=== PATIENT | female | born 1960 | race Caucasian/White ===

== ENCOUNTER 2021-04-13 16:26 | Inpatient (IN) | payer OTHER ==
[2021-04-13 19:01] LABS: EPI CELLS 2 /uL (0-25.1); HYALINE CASTS 0 /uL (0-3.1); URINE APPEARANCE TURBID; URINE BACTERIA 7023 /uL (0-1359); URINE BILIRUBIN NEGATIVE (NEGATIVE); URINE COLOR YELLOW; URINE GLUCOSE (UA) 2+ (NEGATIVE); URINE KETONE NEGATIVE (NEGATIVE); URINE LEUK ESTERASE 3+ (NEGATIVE); URINE NITRITE NEGATIVE (NEGATIVE); URINE PROTEIN 2+ (NEGATIVE); URINE RBC 129 /uL (0-23.9); URINE UROBILINOGEN 0.2 mg/dL (0.2-1.0); URINE WBC 2592 /uL (0-25.8)
[2021-04-13 19:09] LABS: HEMATOCRIT 31.8 % (32.4-45.2); HEMOGLOBIN 10.6 GM/dL (10.7-15.3); MCH 29.6 pg (25.7-33.7); MCHC 33.5 g/dl (32.0-36.0); MEAN CELL VOLUME 88.4 fl (80-96); MEAN PLT VOLUME 9.9 fl (7.5-11.1); PLATELET COUNT 265 10^3/uL (134-434); RBC 3.59 M/mm3 (3.60-5.2); RDW 15.2 % (11.6-15.6); WHITE BLOOD COUNT 7.2 K/mm3 (4.0-10.0)
[2021-04-13] MEDS ORDERED: CEFTRIAXONE 1,000 MG in DEXTROSE 5%-WATER - 50 ML IVPB ONE (19:15)
[2021-04-13] MEDS ORDERED: SODIUM CHLORIDE 0.9% 500 ML INFUS.BAG IV ONE (19:21)
[2021-04-13 19:35] LABS: CHLORIDE 105 mmol/L (98-107); SODIUM 137 mmol/L (136-145)
[2021-04-13 19:36] LABS: CALCIUM 9.1 mg/dL (8.5-10.1)
[2021-04-13] MEDS ORDERED: CEFTRIAXONE 1 GM/50 ML BAG ONE (19:36)
[2021-04-13 19:37] LABS: ALBUMIN 3.6 g/dl (3.4-5.0); ANION GAP 11 MMOL/L (8-16); BLOOD UREA NITROGEN 82.4 mg/dL (7-18); CO2 21 mmol/L (21-32); GLUCOSE,RANDOM 144 mg/dL (74-106)
[2021-04-13 19:40] LABS: CREATININE 1.8 mg/dL (0.55-1.3); SGOT/AST 21 U/L (15-37); SGPT/ALT 6 U/L (13-61)
[2021-04-13 19:42] LABS: BILIRUBIN,TOTAL 0.4 mg/dL (0.2-1); TOT PROT 8.1 g/dl (6.4-8.2)
[2021-04-13 19:43] LABS: ALK PHOS 91 U/L (45-117)
[2021-04-13 19:50] LABS: ANISOCYTOSIS 0; MACROCYTOSIS 0; PLATELET ESTIMATE NORMAL
[2021-04-14] MEDS ORDERED: ALBUTEROL SO4 2.5/IPRATROPIUM 0.5 INH SOL 3 ML VIAL.NEB. NEB PRN (02:31)
[2021-04-14] MEDS: ACETAMINOPHEN 325 MG TABLET (FP) PO PRN ×3 (05:33→17:48)
[2021-04-14] MEDS: INSULIN SLIDING SCALE (NOVOLOG) 1 VIAL SQ SCH ×3 (07:00→17:21)
[2021-04-14] MEDS ORDERED: LEVOTHYROXINE NA 25 MCG TABLET (FP) ONE (07:02)
[2021-04-14] MEDS: LEVOTHYROXINE NA 125 MCG TABLET (FP) PO SCH (07:11)
[2021-04-14 08:34] LABS: HEMATOCRIT 29.6 % (32.4-45.2); HEMOGLOBIN 9.6 GM/dL (10.7-15.3); MCHC 32.5 g/dl (32.0-36.0); MEAN CELL VOLUME 89.2 fl (80-96); MEAN PLT VOLUME 10.7 fl (7.5-11.1); PLATELET COUNT 281 10^3/uL (134-434); RBC 3.32 M/mm3 (3.60-5.2); RDW 15.1 % (11.6-15.6); WHITE BLOOD COUNT 6.3 K/mm3 (4.0-10.0)
[2021-04-14 08:53] LABS: BLOOD UREA NITROGEN 76.8 mg/dL (7-18)
[2021-04-14 08:55] LABS: ALBUMIN 3.3 g/dl (3.4-5.0); MAGNESIUM 2.7 mg/dL (1.8-2.4); PHOSPHOROUS 4.5 mg/dL (2.5-4.9)
[2021-04-14 08:56] LABS: BILIRUBIN,TOTAL 0.3 mg/dL (0.2-1); CREATININE 1.6 mg/dL (0.55-1.3); TOT PROT 7.5 g/dl (6.4-8.2)
[2021-04-14] MEDS ORDERED: APIXABAN 2.5 MG TABLET ONE (09:42)
[2021-04-14] MEDS ORDERED: CEFTRIAXONE 1 GM/50 ML BAG ONE (09:42)
[2021-04-14] MEDS: APIXABAN 2.5 MG TABLET PO SCH ×2 (09:54→23:46)
[2021-04-14] MEDS ORDERED: CEFTRIAXONE 1 GM in DEXTROSE 5%-WATER - 50 ML IVPB ONE (10:00)
[2021-04-14] MEDS ORDERED: PT OWN MED DRAWER 7, Y5N ONE (10:05)
[2021-04-14] MEDS: RANOLAZINE E.R. 500 MG TABLET (FP) PO SCH (10:10)
[2021-04-14] MEDS ORDERED: ACETAMINOPHEN 325 MG TABLET (FP) ONE ×2 (11:35→16:57)
[2021-04-14] MEDS ORDERED: NITROGLYCERIN SUBLINGUAL 1/150 0.4 MG TAB SL PRN (23:09)
[2021-04-14] MEDS ORDERED: NITROGLYCERIN SUBLINGUAL 1/150 0.4 MG TAB ONE (23:10)
[2021-04-14] MEDS ORDERED: traMADol HCL 50 MG TABLET PO ONE (23:29)
[2021-04-14] MEDS ORDERED: RANOLAZINE E.R. 500 MG TABLET (FP) PO ONE (23:30)
[2021-04-15 00:02] VITALS: BMI 21.6
[2021-04-15] MEDS: RANOLAZINE E.R. 500 MG TABLET (FP) PO SCH ×3 (00:02→21:42)
[2021-04-15] MEDS: INSULIN SLIDING SCALE (NOVOLOG) 1 VIAL SQ SCH ×4 (00:02→21:42)
[2021-04-15] MEDS: LEVOTHYROXINE NA 125 MCG TABLET (FP) PO SCH (06:32)
[2021-04-15] MEDS: ACETAMINOPHEN 325 MG TABLET (FP) PO PRN ×2 (06:32→18:16)
[2021-04-15] MEDS: APIXABAN 2.5 MG TABLET PO SCH ×2 (10:27→21:42)
[2021-04-15] MEDS ORDERED: MEROPENEM 1 GM VIAL (RESTRICTED TO ID) IVPB ONE ×2 (10:44→17:57)
[2021-04-15] MEDS ORDERED: DEXTROSE 5%-WATER 100 ML IVPB ONE ×2 (10:44→17:56)
[2021-04-15] MEDS ORDERED: CEFTRIAXONE 1 GM in DEXTROSE 5%-WATER - 50 ML IVPB SCH (10:45)
[2021-04-15] MEDS: LOSARTAN POTASSIUM 50 MG TABLET PO SCH (10:47)
[2021-04-15] MEDS: CARBIDOPA/LEVODOPA 25/100 TABLET (FP) PO SCH (10:47)
[2021-04-15] MEDS: FUROSEMIDE 40 MG TABLET (FP) PO SCH (10:47)
[2021-04-15] MEDS: MEROPENEM 1 GM in DEXTROSE 5%-WATER 100 ML IVPB SCH ×2 (10:48→18:13)
[2021-04-15 12:07] LABS: ALBUMIN 3.2 g/dl (3.4-5.0); BILIRUBIN,TOTAL 0.7 mg/dl (0.2-1); CALCIUM 8.9 mg/dl (8.5-10); CREATININE 1.2 mg/dl (0.55-1.3); MAGNESIUM 2.4 mg/dL (1.8-2.4); TOT PROT 7.1 g/dl (6.4-8.2)
[2021-04-15 12:50] LABS: HEMATOCRIT 28.6 % (32.4-45.2); HEMOGLOBIN 9.6 GM/dL (10.7-15.3); MCH 29.8 pg (25.7-33.7); MCHC 33.7 g/dl (32.0-36.0); MEAN CELL VOLUME 88.5 fl (80-96); MEAN PLT VOLUME 9.5 fl (7.5-11.1); PLATELET COUNT 285 10^3/uL (134-434); RBC 3.23 M/mm3 (3.60-5.2); RDW 15.6 % (11.6-15.6); WHITE BLOOD COUNT 5.9 K/mm3 (4.0-10.0)
[2021-04-15 14:18] LABS: ANISOCYTOSIS 2+; MACROCYTOSIS 0; OVALOCYTE 2+; PLATELET ESTIMATE NORMAL
[2021-04-15] MEDS ORDERED: MEROPENEM 1 GM in DEXTROSE 5%-WATER 100 ML IVPB SCH (18:00)
[2021-04-15] MEDS ORDERED: traMADol HCL 50 MG TABLET PO ONE (23:35)
[2021-04-16] MEDS ORDERED: DEXTROSE 5%-WATER 100 ML IVPB ONE ×4 (00:57→23:58)
[2021-04-16] MEDS ORDERED: MEROPENEM 1 GM VIAL (RESTRICTED TO ID) IVPB ONE ×4 (00:58→23:58)
[2021-04-16] MEDS: MEROPENEM 1 GM in DEXTROSE 5%-WATER 100 ML IVPB SCH ×3 (01:08→18:56)
[2021-04-16] MEDS: ACETAMINOPHEN 325 MG TABLET (FP) PO PRN ×2 (06:34→20:11)
[2021-04-16] MEDS: INSULIN SLIDING SCALE (NOVOLOG) 1 VIAL SQ SCH ×3 (06:41→17:32)
[2021-04-16] MEDS: LEVOTHYROXINE NA 112 MCG TABLET (FP) PO SCH (06:46)
[2021-04-16 08:53] LABS: ALBUMIN 3.3 g/dl (3.4-5.0); BILIRUBIN,TOTAL 0.7 mg/dl (0.2-1); CALCIUM 9.2 mg/dl (8.5-10); CREATININE 1.3 mg/dl (0.55-1.3); TOT PROT 7.2 g/dl (6.4-8.2)
[2021-04-16 10:50] LABS: HEMATOCRIT 31.9 % (32.4-45.2); HEMOGLOBIN 10.3 GM/dL (10.7-15.3); MCH 28.6 pg (25.7-33.7); MCHC 32.1 g/dl (32.0-36.0); MEAN CELL VOLUME 88.9 fl (80-96); MEAN PLT VOLUME 9.8 fl (7.5-11.1); PLATELET COUNT 330 10^3/uL (134-434); RBC 3.59 M/mm3 (3.60-5.2); RDW 15.5 % (11.6-15.6); WHITE BLOOD COUNT 6.8 K/mm3 (4.0-10.0)
[2021-04-16] MEDS: FUROSEMIDE 40 MG TABLET (FP) PO SCH (11:24)
[2021-04-16] MEDS: CARBIDOPA/LEVODOPA 25/100 TABLET (FP) PO SCH (11:24)
[2021-04-16] MEDS: LOSARTAN POTASSIUM 50 MG TABLET PO SCH (11:24)
[2021-04-16] MEDS: RANOLAZINE E.R. 500 MG TABLET (FP) PO SCH ×2 (11:25→21:11)
[2021-04-16] MEDS: APIXABAN 2.5 MG TABLET PO SCH ×2 (11:25→21:11)
[2021-04-16 11:28] LABS: N-TERMINAL BNP 18255.2 pg/ml (5-125)
[2021-04-16 11:32] LABS: ANISOCYTOSIS 0; HELMET CELLS 0; HOWELL-JOLLY BODIES 0; MACROCYTOSIS 0; OVALOCYTE 0; PLATELET ESTIMATE NORMAL; ROULEAU 0; SICKELED CELLS 0; TARGET CELLS 0; TEAR DROP CELLS 0; TOXIC GRANULATION 0
[2021-04-17] MEDS: INSULIN SLIDING SCALE (NOVOLOG) 1 VIAL SQ SCH ×4 (00:23→16:54)
[2021-04-17] MEDS: ACETAMINOPHEN 325 MG TABLET (FP) PO PRN (01:23)
[2021-04-17] MEDS: MEROPENEM 1 GM in DEXTROSE 5%-WATER 100 ML IVPB SCH ×2 (01:24→12:58)
[2021-04-17] MEDS ORDERED: traMADol HCL 50 MG TABLET PO ONE (02:04)
[2021-04-17] MEDS: LEVOTHYROXINE NA 112 MCG TABLET (FP) PO SCH (06:29)
[2021-04-17] MEDS ORDERED: APIXABAN 2.5 MG TABLET PO SCH (10:00)
[2021-04-17] MEDS ORDERED: DEXTROSE 5%-WATER 100 ML IVPB ONE (12:40)
[2021-04-17] MEDS ORDERED: MEROPENEM 1 GM VIAL (RESTRICTED TO ID) IVPB ONE (12:41)
[2021-04-17] MEDS: RANOLAZINE E.R. 500 MG TABLET (FP) PO SCH (12:43)
[2021-04-17] MEDS: FUROSEMIDE 40 MG TABLET (FP) PO SCH (12:44)
[2021-04-17] MEDS: LOSARTAN POTASSIUM 50 MG TABLET PO SCH (12:44)
[2021-04-17] MEDS: CARBIDOPA/LEVODOPA 25/100 TABLET (FP) PO SCH (12:44)
[2021-04-17 14:06] VITALS: BP 150/80; PULSE 81; TEMP 98.6
== END 2021-04-17 17:40 | disposition home health service (06) | DRG 463 ==
LOC: JER 16:26 → UNDOADMOB 19:37 → JERBED 19:37 → FM/S 04-15 00:39 → OBSVTOIN 04-16 13:34
PROVIDERS: ADMIT Hospitalist; ATTEND Nurse Practitioner Acute Care
PROC: 05HB33Z Insertion of Infusion Device into Right Basilic Vein, Percutaneous Approach (ICD-10-PCS; principal; 2021-04-17)
PROC: B51MZZA Fluoroscopy of Right Upper Extremity Veins, Guidance (ICD-10-PCS; 2021-04-17)
PROC: 05HC33Z Insertion of Infusion Device into Left Basilic Vein, Percutaneous Approach (ICD-10-PCS; 2021-04-17)
PROC: B51NZZZ Fluoroscopy of Left Upper Extremity Veins (ICD-10-PCS; 2021-04-17)
DX: N39.0 Urinary tract infection, site not specified (principal); J96.11 Chronic respiratory failure with hypoxia; N17.9 Acute kidney failure, unspecified; B96.1 Klebsiella pneumoniae [K. pneumoniae] as the cause of diseases classified elsewhere; G82.20 Paraplegia, unspecified; I13.0 Hypertensive heart and chronic kidney disease with heart failure and stage 1 through stage 4 chronic kidney disease, or unspecified chronic kidney disease; I50.42 Chronic combined systolic (congestive) and diastolic (congestive) heart failure; G20 Parkinson's disease; I48.0 Paroxysmal atrial fibrillation; R31.9 Hematuria, unspecified; R33.9 Retention of urine, unspecified; Z16.12 Extended spectrum beta lactamase (ESBL) resistance; E78.5 Hyperlipidemia, unspecified; I25.10 Atherosclerotic heart disease of native coronary artery without angina pectoris; Z95.1 Presence of aortocoronary bypass graft; Z98.61 Coronary angioplasty status; E11.9 Type 2 diabetes mellitus without complications; E03.9 Hypothyroidism, unspecified; N18.2 Chronic kidney disease, stage 2 (mild); R07.89 Other chest pain; I69.354 Hemiplegia and hemiparesis following cerebral infarction affecting left non-dominant side; I69.351 Hemiplegia and hemiparesis following cerebral infarction affecting right dominant side
CPT/HCPCS: 36415; 36569; 71045-TC-FY; 75820-TC-FY; 76775-TC; 80053; 80061; 81003; 82550; 82962; 83036; 83735; 83880; 84100; 84443; 84484; 85025; 85027; 87086; 87186; 87804; 93005; 93010; 97162-GP; 99285-25; C9803; G0378; U0003; U0005

== ENCOUNTER 2021-04-20 22:47 | Inpatient (IN) | payer OTHER ==
[2021-04-21] MEDS ORDERED: CLINDAMYCIN 600MG PREMIX IVPB 600 MG/50 ML BAG IVPB ONE ×2 (00:23→00:57)
[2021-04-21] MEDS ORDERED: VANCOMYCIN 1 GM in D5W (PRE-DOCKED) 1,000 MG/250 ML IVPB ONE (00:24)
[2021-04-21] MEDS ORDERED: PIPERACILLIN/TAZOB 4.5 GM 4.5 GM in DEXTROSE 5%-WATER 100 ML IVPB ONE (00:24)
[2021-04-21] MEDS ORDERED: VANCOMYCIN 1 GRAM (PRE-DOCKED) 1,000 MG/250 ML BAG IVPB ONE (00:56)
[2021-04-21] MEDS ORDERED: PIPERACILLIN/TAZOB 4.5 GM 4.5 GM/100 ML BAG IVPB ONE (00:56)
[2021-04-21 01:40] LABS: BASO % 0.5 % (0-2.0); EOS % 1.7 % (0-4.5); HEMATOCRIT 27.7 % (32.4-45.2); HEMOGLOBIN 9.2 GM/dL (10.7-15.3); LYMPH % 23.2 % (8-40); MCH 29.6 pg (25.7-33.7); MCHC 33.2 g/dl (32.0-36.0); MEAN CELL VOLUME 89.2 fl (80-96); MEAN PLT VOLUME 9.3 fl (7.5-11.1); MONO % 8.4 % (3.8-10.2); NEUT % 66.2 % (42.8-82.8); PLATELET COUNT 337 10^3/uL (134-434); RDW 15.5 % (11.6-15.6); WHITE BLOOD COUNT 9.4 K/mm3 (4.0-10.0)
[2021-04-21 01:56] LABS: INR 1.64 (0.83-1.09); PROTHROMBIN TIME (PATIENT) 18.9 SEC (9.7-13.0)
[2021-04-21 01:58] LABS: CHLORIDE 110 mmol/L (98-107); SODIUM 141 mmol/L (136-145)
[2021-04-21 01:59] LABS: ACTIVATED PTT 34.4 SECONDS (25.2-36.5)
[2021-04-21 02:02] LABS: ANION GAP 9 MMOL/L (8-16); BLOOD UREA NITROGEN 57.8 mg/dL (7-18); CALCIUM 8.3 mg/dL (8.5-10.1); CO2 23 mmol/L (21-32); GLUCOSE,RANDOM 198 mg/dL (74-106)
[2021-04-21 02:05] LABS: CREATININE 1.6 mg/dL (0.55-1.3); SGOT/AST 10 U/L (15-37)
[2021-04-21 02:07] LABS: BILIRUBIN,TOTAL 0.4 mg/dL (0.2-1)
[2021-04-21 02:19] LABS: VENOUS BASE EXCESS -5.1 mmol/L (-2-2); VENOUS O2 SATURATION 75.5 % (70-80); VENOUS PCO2 49.7 mmHg (38-52); VENOUS PH 7.263 (7.310-7.410)
[2021-04-21 02:22] LABS: ALK PHOS 127 U/L (45-117); SGPT/ALT < 6 U/L (13-61)
[2021-04-21] MEDS ORDERED: ACETAMINOPHEN 325 MG TABLET (FP) PO ONE (03:09)
[2021-04-21] MEDS ORDERED: ACETAMINOPHEN 325 MG TABLET (FP) ONE (03:11)
[2021-04-21] MEDS ORDERED: LACTATED RINGERS SOLUTION 1000 ML INFUS.BAG IV ONE (03:27)
[2021-04-21] MEDS ORDERED: ASPIRIN 81 MG CHEWABLE TABLETS PO ONE (04:01)
[2021-04-21] MEDS ORDERED: HEPARIN INFUSION - 25,000 UNITS/500 ML INFUS.BAG IVPB ONE ×2 (04:37→05:49)
[2021-04-21] MEDS ORDERED: HEPARIN NA (PORCINE) 5,000 UNITS/ML 1ML VIAL ONE (04:37)
[2021-04-21] MEDS ORDERED: ASPIRIN 81 MG CHEWABLE TABLETS ONE (04:48)
[2021-04-21 04:55] LABS: EPI CELLS 13 /uL (0-25.1); HYALINE CASTS 2 /uL (0-3.1); URINE APPEARANCE CLEAR; URINE BACTERIA 0 /uL (0-1359); URINE BILIRUBIN NEGATIVE (NEGATIVE); URINE COLOR YELLOW; URINE GLUCOSE (UA) 3+ (NEGATIVE); URINE KETONE NEGATIVE (NEGATIVE); URINE LEUK ESTERASE NEGATIVE (NEGATIVE); URINE NITRITE NEGATIVE (NEGATIVE); URINE PROTEIN 2+ (NEGATIVE); URINE RBC 6 /uL (0-23.9); URINE UROBILINOGEN 0.2 mg/dL (0.2-1.0); URINE WBC 27 /uL (0-25.8)
[2021-04-21] MEDS: HEPARIN SOD,PORK IN 0.45% NACL 25,000 UNITS/500 ML INFUS.BAG IVPB SCH (06:03)
[2021-04-21] MEDS ORDERED: ERTAPENEM SODIUM 1 GM in SODIUM CHLORIDE 50 ML IVPB ONE (06:45)
[2021-04-21] MEDS ORDERED: ERTAPENEM SODIUM 1 GM VIAL ONE (07:35)
[2021-04-21] MEDS: LEVOTHYROXINE NA 112 MCG TABLET (FP) PO SCH (09:56)
[2021-04-21] MEDS: RANOLAZINE E.R. 500 MG TABLET (FP) PO SCH (09:57)
[2021-04-21] MEDS ORDERED: FUROSEMIDE 40 MG TABLET (FP) ONE (10:00)
[2021-04-21] MEDS ORDERED: CARBIDOPA/LEVODOPA 25/100 TABLET (FP) PO SCH (10:00)
[2021-04-21] MEDS ORDERED: LOSARTAN POTASSIUM 50 MG TABLET ONE (10:00)
[2021-04-21] MEDS: LOSARTAN POTASSIUM 50 MG TABLET PO SCH (10:02)
[2021-04-21] MEDS: FUROSEMIDE 40 MG TABLET (FP) PO SCH (10:02)
[2021-04-21] MEDS: INSULIN SLIDING SCALE (NOVOLOG) 1 VIAL SQ SCH ×2 (10:13→13:05)
[2021-04-21 11:43] LABS: HEMATOCRIT 29.3 % (32.4-45.2); HEMOGLOBIN 9.5 GM/dL (10.7-15.3); MCH 29.3 pg (25.7-33.7); MCHC 32.6 g/dl (32.0-36.0); MEAN PLT VOLUME 9.4 fl (7.5-11.1); PLATELET COUNT 328 10^3/uL (134-434); RBC 3.25 M/mm3 (3.60-5.2); WHITE BLOOD COUNT 10.8 K/mm3 (4.0-10.0)
[2021-04-21 12:50] LABS: ALBUMIN 3.2 g/dl (3.4-5.0); BILIRUBIN,TOTAL 0.3 mg/dL (0.2-1); BLOOD UREA NITROGEN 52.2 mg/dL (7-18); CREATININE 1.4 mg/dL (0.55-1.3); MAGNESIUM 2.5 mg/dL (1.8-2.4); PHOSPHOROUS 4.6 mg/dL (2.5-4.9); TOT PROT 7.7 g/dl (6.4-8.2)
[2021-04-21] MEDS ORDERED: traZODone HCL 50 MG TABLET (FP) PO SCH (22:00)
[2021-04-22] MEDS ORDERED: ACETAMINOPHEN 1000 MG/100 ML BAG IVPB ONE (03:16)
[2021-04-22] MEDS: INSULIN SLIDING SCALE (NOVOLOG) 1 VIAL SQ SCH ×7 (03:20→23:12)
[2021-04-22] MEDS: HEPARIN NA (PORCINE) 5,000 UNITS/ML 1ML VIAL IVPUSH PRN (04:15)
[2021-04-22] MEDS ORDERED: HEPARIN NA (PORCINE) 5,000 UNITS/ML 1ML VIAL ONE (04:22)
[2021-04-22 08:30] LABS: HEMOGLOBIN 9.3 GM/dL (10.7-15.3); MCHC 31.9 g/dl (32.0-36.0); MEAN CELL VOLUME 90.7 fl (80-96); MEAN PLT VOLUME 9.7 fl (7.5-11.1); PLATELET COUNT 293 10^3/uL (134-434); RDW 15.8 % (11.6-15.6); WHITE BLOOD COUNT 9.3 K/mm3 (4.0-10.0)
[2021-04-22] MEDS: LEVOTHYROXINE NA 112 MCG TABLET (FP) PO SCH (09:04)
[2021-04-22] MEDS ORDERED: LOSARTAN POTASSIUM 50 MG TABLET ONE (09:16)
[2021-04-22] MEDS ORDERED: FUROSEMIDE 40 MG TABLET (FP) ONE (09:16)
[2021-04-22] MEDS ORDERED: CARBIDOPA/LEVODOPA 25/100 TABLET (FP) ONE (09:16)
[2021-04-22 09:20] LABS: ALBUMIN 2.8 g/dl (3.4-5.0); BILIRUBIN,TOTAL 0.4 mg/dL (0.2-1); BLOOD UREA NITROGEN 42.3 mg/dL (7-18); CALCIUM 9.2 mg/dL (8.5-10.1); CREATININE 1.3 mg/dL (0.55-1.3); TOT PROT 7.3 g/dl (6.4-8.2)
[2021-04-22] MEDS: RANOLAZINE E.R. 500 MG TABLET (FP) PO SCH ×3 (09:21→21:08)
[2021-04-22] MEDS: CARBIDOPA/LEVODOPA 25/100 TABLET (FP) PO SCH (09:21)
[2021-04-22] MEDS: LOSARTAN POTASSIUM 50 MG TABLET PO SCH (09:21)
[2021-04-22] MEDS: FUROSEMIDE 40 MG TABLET (FP) PO SCH (09:21)
[2021-04-22] MEDS ORDERED: HEPARIN INFUSION - 25,000 UNITS/500 ML INFUS.BAG IVPB ONE (18:32)
[2021-04-22] MEDS: HEPARIN SOD,PORK IN 0.45% NACL 25,000 UNITS/500 ML INFUS.BAG IVPB SCH (18:34)
[2021-04-22] MEDS ORDERED: ERTAPENEM SODIUM 1 GM in SODIUM CHLORIDE 50 ML IVPB ONE (19:00)
[2021-04-22] MEDS ORDERED: ERTAPENEM SODIUM 1 GM VIAL ONE (21:03)
[2021-04-22] MEDS: oxyCODONE HCL 5 MG TABLET PO PRN (21:17)
[2021-04-22] MEDS ORDERED: oxyCODONE HCL 5 MG TABLET ONE (21:21)
[2021-04-22] MEDS: traZODone HCL 100 MG TABLET (FP) PO SCH (21:22)
[2021-04-23] MEDS ORDERED: MELATONIN 5 MG TABLETS PO ONE (01:18)
[2021-04-23] MEDS: oxyCODONE HCL 5 MG TABLET PO PRN ×3 (03:05→22:02)
[2021-04-23 04:23] VITALS: BMI 22.4
[2021-04-23] MEDS ORDERED: ACETAMINOPHEN 1000 MG/100 ML BAG IVPB ONE (04:44)
[2021-04-23] MEDS: INSULIN SLIDING SCALE (NOVOLOG) 1 VIAL SQ SCH ×4 (06:04→21:01)
[2021-04-23] MEDS: LEVOTHYROXINE NA 112 MCG TABLET (FP) PO SCH (06:04)
[2021-04-23] MEDS: HEPARIN SOD,PORK IN 0.45% NACL 25,000 UNITS/500 ML INFUS.BAG IVPB SCH (07:12)
[2021-04-23] MEDS: RANOLAZINE E.R. 500 MG TABLET (FP) PO SCH ×2 (09:00→21:00)
[2021-04-23] MEDS: LOSARTAN POTASSIUM 50 MG TABLET PO SCH (09:00)
[2021-04-23] MEDS: FUROSEMIDE 40 MG TABLET (FP) PO SCH (09:00)
[2021-04-23] MEDS: CARBIDOPA/LEVODOPA 25/100 TABLET (FP) PO SCH (09:00)
[2021-04-23 09:07] LABS: HEMATOCRIT 25.8 % (32.4-45.2); HEMOGLOBIN 8.1 GM/dL (10.7-15.3); MCH 28.6 pg (25.7-33.7); MCHC 31.3 g/dl (32.0-36.0); MEAN CELL VOLUME 91.5 fl (80-96); MEAN PLT VOLUME 9.7 fl (7.5-11.1); PLATELET COUNT 289 10^3/uL (134-434); RBC 2.82 M/mm3 (3.60-5.2); RDW 15.6 % (11.6-15.6); WHITE BLOOD COUNT 7.4 K/mm3 (4.0-10.0)
[2021-04-23] MEDS ORDERED: MEROPENEM 1 GM VIAL (RESTRICTED TO ID) IVPB ONE (14:23)
[2021-04-23] MEDS ORDERED: DEXTROSE 5%-WATER 100 ML IVPB ONE (14:24)
[2021-04-23] MEDS: MEROPENEM 1 GM in DEXTROSE 5%-WATER 100 ML IVPB SCH ×2 (14:33→17:44)
[2021-04-23] MEDS: traZODone HCL 100 MG TABLET (FP) PO SCH (21:01)
[2021-04-24] MEDS ORDERED: MEROPENEM 1 GM VIAL (RESTRICTED TO ID) IVPB ONE ×3 (02:45→17:14)
[2021-04-24] MEDS ORDERED: DEXTROSE 5%-WATER 100 ML IVPB ONE ×3 (02:45→17:14)
[2021-04-24] MEDS: MEROPENEM 1 GM in DEXTROSE 5%-WATER 100 ML IVPB SCH ×3 (02:53→17:29)
[2021-04-24] MEDS ORDERED: ACETAMINOPHEN 1000 MG/100 ML BAG IVPB ONE (02:57)
[2021-04-24] MEDS ORDERED: NITROGLYCERIN SUBLINGUAL 1/200 0.3 MG BTL SL PRN (02:59)
[2021-04-24] MEDS: NITROGLYCERIN SUBLINGUAL 1/150 0.4 MG TAB SL PRN ×2 (03:43→13:14)
[2021-04-24] MEDS: HEPARIN SOD,PORK IN 0.45% NACL 25,000 UNITS/500 ML INFUS.BAG IVPB SCH (05:56)
[2021-04-24] MEDS: LEVOTHYROXINE NA 112 MCG TABLET (FP) PO SCH (06:01)
[2021-04-24] MEDS: INSULIN SLIDING SCALE (NOVOLOG) 1 VIAL SQ SCH ×5 (06:01→21:00)
[2021-04-24] MEDS: RANOLAZINE E.R. 500 MG TABLET (FP) PO SCH ×2 (10:22→21:05)
[2021-04-24] MEDS: ZINC SULFATE 220 MG CAPSULE (FP) PO SCH (10:22)
[2021-04-24] MEDS: CARBIDOPA/LEVODOPA 25/100 TABLET (FP) PO SCH (10:22)
[2021-04-24] MEDS: MULTIVITAMINS (DAILY MVI) TABLET (FP) PO SCH (10:23)
[2021-04-24] MEDS: LOSARTAN POTASSIUM 50 MG TABLET PO SCH (10:23)
[2021-04-24] MEDS: FUROSEMIDE 40 MG TABLET (FP) PO SCH (10:23)
[2021-04-24 11:23] LABS: HEMATOCRIT 28.4 % (32.4-45.2); HEMOGLOBIN 9.1 GM/dL (10.7-15.3); MCHC 32.2 g/dl (32.0-36.0); MEAN CELL VOLUME 90.3 fl (80-96); MEAN PLT VOLUME 9.9 fl (7.5-11.1); PLATELET COUNT 312 10^3/uL (134-434); RBC 3.14 M/mm3 (3.60-5.2); RDW 15.5 % (11.6-15.6); WHITE BLOOD COUNT 7.3 K/mm3 (4.0-10.0)
[2021-04-24 11:43] LABS: CHLORIDE 108 mmol/L (98-107); SODIUM 140 mmol/L (136-145)
[2021-04-24 11:45] LABS: CALCIUM 9.4 mg/dL (8.5-10.1)
[2021-04-24 11:47] LABS: ANION GAP 6 MMOL/L (8-16); BLOOD UREA NITROGEN 36.7 mg/dL (7-18); CO2 27 mmol/L (21-32); GLUCOSE,RANDOM 131 mg/dL (74-106)
[2021-04-24 11:49] LABS: CREATININE 1.2 mg/dL (0.55-1.3); SGOT/AST 35 U/L (15-37); SGPT/ALT 8 U/L (13-61)
[2021-04-24 11:51] LABS: BILIRUBIN,TOTAL 0.4 mg/dL (0.2-1); TOT PROT 7.1 g/dl (6.4-8.2)
[2021-04-24 11:53] LABS: ALK PHOS 97 U/L (45-117)
[2021-04-24] MEDS: ASCORBIC ACID 250 MG TABLET (FP) PO SCH (12:04)
[2021-04-24] MEDS: HEPARIN NA (PORCINE) 5,000 UNITS/ML 1ML VIAL IVPUSH PRN (12:30)
[2021-04-24] MEDS: LIDOCAINE 5% TOPICAL PATCH TP SCH (14:35)
[2021-04-24] MEDS ORDERED: ACETAMINOPHEN 325 MG TABLET (FP) PO PRN (17:58)
[2021-04-24] MEDS: traZODone HCL 100 MG TABLET (FP) PO SCH (21:05)
[2021-04-24] MEDS ORDERED: LIDOCAINE PATCH REMOVAL MC SCH (22:00)
[2021-04-25] MEDS ORDERED: MEROPENEM 1 GM VIAL (RESTRICTED TO ID) IVPB ONE ×3 (01:39→17:06)
[2021-04-25] MEDS ORDERED: DEXTROSE 5%-WATER 100 ML IVPB ONE ×3 (01:39→17:06)
[2021-04-25] MEDS: MEROPENEM 1 GM in DEXTROSE 5%-WATER 100 ML IVPB SCH ×3 (01:42→17:31)
[2021-04-25] MEDS: oxyCODONE HCL 5 MG TABLET PO PRN ×2 (04:07→21:04)
[2021-04-25] MEDS: HEPARIN SOD,PORK IN 0.45% NACL 25,000 UNITS/500 ML INFUS.BAG IVPB SCH ×2 (05:02→17:22)
[2021-04-25] MEDS: INSULIN SLIDING SCALE (NOVOLOG) 1 VIAL SQ SCH ×4 (06:00→21:04)
[2021-04-25] MEDS: LEVOTHYROXINE NA 112 MCG TABLET (FP) PO SCH (06:00)
[2021-04-25 06:45] LABS: HEMATOCRIT 25.8 % (32.4-45.2); HEMOGLOBIN 8.2 GM/dL (10.7-15.3); MCHC 31.7 g/dl (32.0-36.0); MEAN CELL VOLUME 91.6 fl (80-96); MEAN PLT VOLUME 9.2 fl (7.5-11.1); PLATELET COUNT 290 10^3/uL (134-434); RBC 2.82 M/mm3 (3.60-5.2); RDW 15.4 % (11.6-15.6); WHITE BLOOD COUNT 6.1 K/mm3 (4.0-10.0)
[2021-04-25 09:21] LABS: ALBUMIN 2.7 g/dl (3.4-5.0); ALK PHOS 84 U/L (45-117); ANION GAP 8 MMOL/L (8-16); BILIRUBIN,TOTAL 0.3 mg/dL (0.2-1); BLOOD UREA NITROGEN 30.5 mg/dL (7-18); CHLORIDE 109 mmol/L (98-107); CO2 23 mmol/L (21-32); GLUCOSE,RANDOM 80 mg/dL (74-106); MAGNESIUM 2.3 mg/dL (1.8-2.4); PHOSPHOROUS 3.7 mg/dL (2.5-4.9); SGOT/AST 16 U/L (15-37); SGPT/ALT < 6 U/L (13-61); SODIUM 141 mmol/L (136-145); TOT PROT 6.4 g/dl (6.4-8.2)
[2021-04-25] MEDS: MULTIVITAMINS (DAILY MVI) TABLET (FP) PO SCH (09:22)
[2021-04-25] MEDS: CARBIDOPA/LEVODOPA 25/100 TABLET (FP) PO SCH (09:22)
[2021-04-25] MEDS: RANOLAZINE E.R. 500 MG TABLET (FP) PO SCH ×2 (09:22→21:04)
[2021-04-25] MEDS: ZINC SULFATE 220 MG CAPSULE (FP) PO SCH (09:22)
[2021-04-25] MEDS: LIDOCAINE 5% TOPICAL PATCH TP SCH (09:22)
[2021-04-25] MEDS: LOSARTAN POTASSIUM 50 MG TABLET PO SCH (09:22)
[2021-04-25] MEDS: ASCORBIC ACID 250 MG TABLET (FP) PO SCH (09:22)
[2021-04-25] MEDS: FUROSEMIDE 40 MG TABLET (FP) PO SCH (09:23)
[2021-04-25] MEDS ORDERED: HEPARIN NA (PORCINE) 5,000 UNITS/ML 1ML VIAL ONE (10:55)
[2021-04-25] MEDS ORDERED: LIDOCAINE HCL 1%, 10 MG/ML (20ML VIAL) ONE (10:55)
[2021-04-25] MEDS ORDERED: PHENYLEPHRINE HCL 10 MG/1 ML SINGLE DOSE VIAL ONE (12:01)
[2021-04-25] MEDS ORDERED: SUCCINYLCHOLINE CHLORIDE 200 MG/10 ML SYRINGE ONE (12:01)
[2021-04-25] MEDS ORDERED: fentaNYL CITRATE 250 MCG/5 ML VIAL ONE (12:01)
[2021-04-25] MEDS ORDERED: PROPOFOL 20 ML ONE (12:01)
[2021-04-25] MEDS ORDERED: ceFAZolin SODIUM 1 GM VIAL ONE (12:05)
[2021-04-25] MEDS ORDERED: ceFAZolin SODIUM 1 GM VIAL IVPB ONE (12:40)
[2021-04-25] MEDS ORDERED: POVIDONE-IODINE OINTMENT 10% - 28.4 GM TUBE ONE (14:10)
[2021-04-25] MEDS ORDERED: HEPARIN NA (PORCINE) 5,000 UNITS/ML 1ML VIAL IVPUSH PRN (15:57)
[2021-04-25] MEDS ORDERED: ACETAMINOPHEN 325 MG TABLET (FP) PO PRN (15:57)
[2021-04-25] MEDS ORDERED: NITROGLYCERIN SUBLINGUAL 1/150 0.4 MG TAB SL PRN (15:57)
[2021-04-25] MEDS ORDERED: oxyCODONE HCL 5 MG TABLET PO PRN (16:10)
[2021-04-25] MEDS: traZODone HCL 100 MG TABLET (FP) PO SCH (21:04)
[2021-04-25] MEDS: LIDOCAINE PATCH REMOVAL MC SCH (21:04)
[2021-04-25] MEDS: ACETAMINOPHEN 325 MG TABLET (FP) PO PRN (21:06)
[2021-04-26] MEDS ORDERED: DEXTROSE 5%-WATER 100 ML IVPB ONE ×3 (01:21→16:39)
[2021-04-26] MEDS ORDERED: MEROPENEM 1 GM VIAL (RESTRICTED TO ID) IVPB ONE ×3 (01:21→16:39)
[2021-04-26] MEDS: morphine SULFATE 4 MG/ML VIAL IVPUSH PRN ×2 (01:25→08:05)
[2021-04-26] MEDS: MEROPENEM 1 GM in DEXTROSE 5%-WATER 100 ML IVPB SCH ×3 (01:26→17:00)
[2021-04-26] MEDS: INSULIN SLIDING SCALE (NOVOLOG) 1 VIAL SQ SCH ×4 (06:18→21:49)
[2021-04-26] MEDS: LEVOTHYROXINE NA 112 MCG TABLET (FP) PO SCH (06:18)
[2021-04-26 07:48] LABS: BASO % 0.9 % (0-2.0); EOS % 2.4 % (0-4.5); HEMATOCRIT 32.5 % (32.4-45.2); HEMOGLOBIN 10.7 GM/dL (10.7-15.3); LYMPH % 14.6 % (8-40); MCH 29.8 pg (25.7-33.7); MCHC 32.8 g/dl (32.0-36.0); MEAN CELL VOLUME 90.6 fl (80-96); MEAN PLT VOLUME 10.3 fl (7.5-11.1); MONO % 9.6 % (3.8-10.2); NEUT % 72.5 % (42.8-82.8); PLATELET COUNT 252 10^3/uL (134-434); RBC 3.59 M/mm3 (3.60-5.2); RDW 14.6 % (11.6-15.6); WHITE BLOOD COUNT 7.6 K/mm3 (4.0-10.0)
[2021-04-26 08:48] LABS: ALBUMIN 3.1 g/dl (3.4-5.0); BILIRUBIN,TOTAL 0.4 mg/dL (0.2-1); BLOOD UREA NITROGEN 25.5 mg/dL (7-18); MAGNESIUM 2.2 mg/dL (1.8-2.4); PHOSPHOROUS 3.1 mg/dL (2.5-4.9); TOT PROT 6.9 g/dl (6.4-8.2)
[2021-04-26] MEDS ORDERED: HYDROmorphone HCl 2 MG/ML VIAL IVPUSH ONE (09:09)
[2021-04-26] MEDS: FUROSEMIDE 40 MG TABLET (FP) PO SCH (09:53)
[2021-04-26] MEDS: RANOLAZINE E.R. 500 MG TABLET (FP) PO SCH ×2 (09:53→21:47)
[2021-04-26] MEDS: LOSARTAN POTASSIUM 50 MG TABLET PO SCH (09:53)
[2021-04-26] MEDS: CARBIDOPA/LEVODOPA 25/100 TABLET (FP) PO SCH (09:53)
[2021-04-26] MEDS: ZINC SULFATE 220 MG CAPSULE (FP) PO SCH (09:53)
[2021-04-26] MEDS: MULTIVITAMINS (DAILY MVI) TABLET (FP) PO SCH (09:53)
[2021-04-26] MEDS: LIDOCAINE 5% TOPICAL PATCH TP SCH (09:54)
[2021-04-26] MEDS: ASCORBIC ACID 250 MG TABLET (FP) PO SCH (09:54)
[2021-04-26] MEDS: HEPARIN SOD,PORK IN 0.45% NACL 25,000 UNITS/500 ML INFUS.BAG IVPB SCH (17:01)
[2021-04-26] MEDS: HYDROmorphone HCl 2 MG/ML VIAL IVPUSH PRN (18:06)
[2021-04-26] MEDS: oxyCODONE HCL 5 MG TABLET PO SCH (19:24)
[2021-04-26] MEDS: oxyCODONE HCL 5 MG TABLET PO PRN (21:47)
[2021-04-26] MEDS: traZODone HCL 100 MG TABLET (FP) PO SCH (21:47)
[2021-04-26] MEDS: MELATONIN 5 MG TABLETS PO PRN (21:47)
[2021-04-26] MEDS: LIDOCAINE PATCH REMOVAL MC SCH (21:48)
[2021-04-27] MEDS ORDERED: DEXTROSE 5%-WATER 100 ML IVPB ONE ×3 (00:11→18:06)
[2021-04-27] MEDS ORDERED: MEROPENEM 1 GM VIAL (RESTRICTED TO ID) IVPB ONE ×3 (00:11→18:06)
[2021-04-27] MEDS: oxyCODONE HCL 5 MG TABLET PO SCH ×4 (00:16→18:13)
[2021-04-27] MEDS: HEPARIN SOD,PORK IN 0.45% NACL 25,000 UNITS/500 ML INFUS.BAG IVPB SCH ×2 (00:17→16:43)
[2021-04-27] MEDS: MEROPENEM 1 GM in DEXTROSE 5%-WATER 100 ML IVPB SCH ×3 (01:45→18:13)
[2021-04-27] MEDS: HYDROmorphone HCl 2 MG/ML VIAL IVPUSH PRN ×3 (03:33→22:38)
[2021-04-27] MEDS: INSULIN SLIDING SCALE (NOVOLOG) 1 VIAL SQ SCH ×4 (07:32→21:19)
[2021-04-27] MEDS: LEVOTHYROXINE NA 112 MCG TABLET (FP) PO SCH (07:32)
[2021-04-27 09:11] LABS: HEMATOCRIT 30.1 % (32.4-45.2); HEMOGLOBIN 9.7 GM/dL (10.7-15.3); MCH 29.4 pg (25.7-33.7); MCHC 32.3 g/dl (32.0-36.0); MEAN CELL VOLUME 90.8 fl (80-96); MEAN PLT VOLUME 10.4 fl (7.5-11.1); PLATELET COUNT 260 10^3/uL (134-434); RBC 3.31 M/mm3 (3.60-5.2); RDW 14.8 % (11.6-15.6)
[2021-04-27 09:43] LABS: CALCIUM 9.2 mg/dL (8.5-10.1)
[2021-04-27 09:44] LABS: BLOOD UREA NITROGEN 25.4 mg/dL (7-18); MAGNESIUM 2.2 mg/dL (1.8-2.4)
[2021-04-27 09:47] LABS: CREATININE 0.9 mg/dL (0.55-1.3); PHOSPHOROUS 3.3 mg/dL (2.5-4.9)
[2021-04-27] MEDS: LIDOCAINE 5% TOPICAL PATCH TP SCH (11:39)
[2021-04-27] MEDS: MULTIVITAMINS (DAILY MVI) TABLET (FP) PO SCH (13:18)
[2021-04-27] MEDS: ZINC SULFATE 220 MG CAPSULE (FP) PO SCH (13:19)
[2021-04-27] MEDS: FUROSEMIDE 40 MG TABLET (FP) PO SCH (13:20)
[2021-04-27] MEDS: ASCORBIC ACID 250 MG TABLET (FP) PO SCH (13:20)
[2021-04-27] MEDS: RANOLAZINE E.R. 500 MG TABLET (FP) PO SCH ×2 (13:21→21:18)
[2021-04-27] MEDS: CARBIDOPA/LEVODOPA 25/100 TABLET (FP) PO SCH (13:21)
[2021-04-27] MEDS: LOSARTAN POTASSIUM 50 MG TABLET PO SCH (13:21)
[2021-04-27] MEDS: DOCUSATE SODIUM 100 MG CAPSULE (FP) PO SCH (13:22)
[2021-04-27] MEDS: traZODone HCL 100 MG TABLET (FP) PO SCH (21:18)
[2021-04-27] MEDS: LIDOCAINE PATCH REMOVAL MC SCH (21:19)
[2021-04-28] MEDS ORDERED: MEROPENEM 1 GM VIAL (RESTRICTED TO ID) IVPB ONE ×3 (01:33→17:13)
[2021-04-28] MEDS ORDERED: DEXTROSE 5%-WATER 100 ML IVPB ONE ×3 (01:33→17:13)
[2021-04-28] MEDS: MEROPENEM 1 GM in DEXTROSE 5%-WATER 100 ML IVPB SCH ×3 (01:38→19:09)
[2021-04-28] MEDS: oxyCODONE HCL 5 MG TABLET PO SCH ×4 (01:45→19:09)
[2021-04-28] MEDS: ACETAMINOPHEN 325 MG TABLET (FP) PO PRN (05:44)
[2021-04-28] MEDS: LEVOTHYROXINE NA 112 MCG TABLET (FP) PO SCH (07:16)
[2021-04-28] MEDS: INSULIN SLIDING SCALE (NOVOLOG) 1 VIAL SQ SCH ×4 (07:16→21:41)
[2021-04-28 08:11] LABS: BLOOD UREA NITROGEN 30.3 mg/dL (7-18); CALCIUM 8.5 mg/dL (8.5-10.1)
[2021-04-28 08:16] LABS: MAGNESIUM 2.2 mg/dL (1.8-2.4)
[2021-04-28] MEDS: DOCUSATE SODIUM 100 MG CAPSULE (FP) PO SCH (11:07)
[2021-04-28] MEDS: ZINC SULFATE 220 MG CAPSULE (FP) PO SCH (11:07)
[2021-04-28] MEDS: CARBIDOPA/LEVODOPA 25/100 TABLET (FP) PO SCH (11:07)
[2021-04-28] MEDS: ASCORBIC ACID 250 MG TABLET (FP) PO SCH (11:07)
[2021-04-28] MEDS: FUROSEMIDE 40 MG TABLET (FP) PO SCH (11:07)
[2021-04-28] MEDS: LOSARTAN POTASSIUM 50 MG TABLET PO SCH (11:08)
[2021-04-28] MEDS: RANOLAZINE E.R. 500 MG TABLET (FP) PO SCH ×2 (11:08→21:35)
[2021-04-28] MEDS: HYDROmorphone HCl 2 MG/ML VIAL IVPUSH PRN ×2 (11:10→21:43)
[2021-04-28] MEDS: LIDOCAINE 5% TOPICAL PATCH TP SCH (11:10)
[2021-04-28] MEDS: MULTIVITAMINS (DAILY MVI) TABLET (FP) PO SCH (11:17)
[2021-04-28] MEDS: HEPARIN SOD,PORK IN 0.45% NACL 25,000 UNITS/500 ML INFUS.BAG IVPB SCH (15:16)
[2021-04-28] MEDS: traZODone HCL 100 MG TABLET (FP) PO SCH (21:35)
[2021-04-28] MEDS: LIDOCAINE PATCH REMOVAL MC SCH (21:35)
[2021-04-28] MEDS: MELATONIN 5 MG TABLETS PO PRN (21:42)
[2021-04-29] MEDS ORDERED: MEROPENEM 1 GM VIAL (RESTRICTED TO ID) IVPB ONE ×2 (01:02→08:49)
[2021-04-29] MEDS ORDERED: DEXTROSE 5%-WATER 100 ML IVPB ONE ×2 (01:03→08:49)
[2021-04-29] MEDS: MEROPENEM 1 GM in DEXTROSE 5%-WATER 100 ML IVPB SCH ×2 (01:05→09:18)
[2021-04-29] MEDS: oxyCODONE HCL 5 MG TABLET PO SCH ×4 (01:40→18:16)
[2021-04-29] MEDS: LEVOTHYROXINE NA 112 MCG TABLET (FP) PO SCH (06:01)
[2021-04-29] MEDS: INSULIN SLIDING SCALE (NOVOLOG) 1 VIAL SQ SCH ×4 (06:06→22:12)
[2021-04-29] MEDS: HYDROmorphone HCl 2 MG/ML VIAL IVPUSH PRN ×3 (08:00→21:29)
[2021-04-29] MEDS: CARBIDOPA/LEVODOPA 25/100 TABLET (FP) PO SCH (09:19)
[2021-04-29] MEDS: FUROSEMIDE 40 MG TABLET (FP) PO SCH (09:19)
[2021-04-29] MEDS: RANOLAZINE E.R. 500 MG TABLET (FP) PO SCH ×2 (09:19→21:30)
[2021-04-29] MEDS: LOSARTAN POTASSIUM 50 MG TABLET PO SCH (09:19)
[2021-04-29] MEDS: LIDOCAINE 5% TOPICAL PATCH TP SCH (09:20)
[2021-04-29 10:59] LABS: BASO % 0.3 % (0-2.0); HEMATOCRIT 28.4 % (32.4-45.2); HEMOGLOBIN 9.4 GM/dL (10.7-15.3); LYMPH % 14.5 % (8-40); MCH 30.1 pg (25.7-33.7); MCHC 33.1 g/dl (32.0-36.0); MEAN PLT VOLUME 9.1 fl (7.5-11.1); MONO % 7.2 % (3.8-10.2); PLATELET COUNT 308 10^3/uL (134-434); RBC 3.12 M/mm3 (3.60-5.2); WHITE BLOOD COUNT 9.3 K/mm3 (4.0-10.0)
[2021-04-29 11:42] LABS: ALBUMIN 2.4 g/dl (3.4-5.0); ALK PHOS 86 U/L (45-117); ANION GAP 6 MMOL/L (8-16); BILIRUBIN,TOTAL 0.5 mg/dL (0.2-1); BLOOD UREA NITROGEN 33.9 mg/dL (7-18); CALCIUM 9.1 mg/dL (8.5-10.1); CHLORIDE 98 mmol/L (98-107); CO2 30 mmol/L (21-32); CREATININE 1.5 mg/dL (0.55-1.3); GLUCOSE,RANDOM 104 mg/dL (74-106); MAGNESIUM 2.2 mg/dL (1.8-2.4); PHOSPHOROUS 3.1 mg/dL (2.5-4.9); SGOT/AST 14 U/L (15-37); SGPT/ALT < 6 U/L (13-61); SODIUM 135 mmol/L (136-145); TOT PROT 6.3 g/dl (6.4-8.2)
[2021-04-29] MEDS: DOCUSATE SODIUM 100 MG CAPSULE (FP) PO SCH (11:47)
[2021-04-29] MEDS: ZINC SULFATE 220 MG CAPSULE (FP) PO SCH (11:47)
[2021-04-29] MEDS: ASCORBIC ACID 250 MG TABLET (FP) PO SCH (11:48)
[2021-04-29] MEDS: MULTIVITAMINS (DAILY MVI) TABLET (FP) PO SCH (11:48)
[2021-04-29] MEDS: oxyCODONE HCL 5 MG TABLET PO PRN (12:14)
[2021-04-29] MEDS: HEPARIN SOD,PORK IN 0.45% NACL 25,000 UNITS/500 ML INFUS.BAG IVPB SCH ×2 (17:22→23:44)
[2021-04-29] MEDS: traZODone HCL 100 MG TABLET (FP) PO SCH (21:30)
[2021-04-29] MEDS: LIDOCAINE PATCH REMOVAL MC SCH (21:30)
[2021-04-30] MEDS: oxyCODONE HCL 5 MG TABLET PO SCH ×4 (00:43→18:04)
[2021-04-30] MEDS: HYDROmorphone HCl 2 MG/ML VIAL IVPUSH PRN ×4 (03:25→16:45)
[2021-04-30] MEDS: LEVOTHYROXINE NA 112 MCG TABLET (FP) PO SCH (06:19)
[2021-04-30] MEDS: INSULIN SLIDING SCALE (NOVOLOG) 1 VIAL SQ SCH ×4 (06:19→22:25)
[2021-04-30] MEDS ORDERED: NITROGLYCERIN SUBLINGUAL 1/150 0.4 MG TAB SL PRN ×2 (07:42→17:35)
[2021-04-30] MEDS ORDERED: LIDOCAINE PATCH REMOVAL MC SCH ×2 (07:42→22:00)
[2021-04-30] MEDS ORDERED: ASCORBIC ACID 250 MG TABLET (FP) PO SCH (10:00)
[2021-04-30] MEDS ORDERED: CARBIDOPA/LEVODOPA 25/100 TABLET (FP) PO SCH (10:00)
[2021-04-30] MEDS ORDERED: FUROSEMIDE 40 MG TABLET (FP) PO SCH (10:00)
[2021-04-30] MEDS ORDERED: ZINC SULFATE 220 MG CAPSULE (FP) PO SCH (10:00)
[2021-04-30] MEDS ORDERED: LIDOCAINE 5% TOPICAL PATCH TP SCH (10:00)
[2021-04-30] MEDS ORDERED: RANOLAZINE E.R. 500 MG TABLET (FP) PO SCH (10:00)
[2021-04-30] MEDS ORDERED: LOSARTAN POTASSIUM 50 MG TABLET PO SCH (10:00)
[2021-04-30] MEDS ORDERED: MULTIVITAMINS (DAILY MVI) TABLET (FP) PO SCH (10:00)
[2021-04-30] MEDS: DOCUSATE SODIUM 100 MG CAPSULE (FP) PO SCH (10:58)
[2021-04-30 11:49] LABS: BASO % 0.7 % (0-2.0); EOS % 3.3 % (0-4.5); HEMATOCRIT 26.3 % (32.4-45.2); HEMOGLOBIN 8.6 GM/dL (10.7-15.3); LYMPH % 18.4 % (8-40); MCHC 32.8 g/dl (32.0-36.0); MEAN CELL VOLUME 91.4 fl (80-96); MEAN PLT VOLUME 9.7 fl (7.5-11.1); MONO % 9.6 % (3.8-10.2); PLATELET COUNT 307 10^3/uL (134-434); RBC 2.87 M/mm3 (3.60-5.2); RDW 14.6 % (11.6-15.6); WHITE BLOOD COUNT 8.3 K/mm3 (4.0-10.0)
[2021-04-30] MEDS ORDERED: LIDOCAINE HCL 1%, 10 MG/ML (20ML VIAL) ONE (11:53)
[2021-04-30 11:59] LABS: CHLORIDE 101 mmol/L (98-107); SODIUM 135 mmol/L (136-145)
[2021-04-30 12:01] LABS: CALCIUM 8.9 mg/dL (8.5-10.1)
[2021-04-30 12:02] LABS: ALBUMIN 2.4 g/dl (3.4-5.0); ANION GAP 8 MMOL/L (8-16); BLOOD UREA NITROGEN 36.5 mg/dL (7-18); CO2 26 mmol/L (21-32); GLUCOSE,RANDOM 78 mg/dL (74-106)
[2021-04-30 12:05] LABS: CREATININE 1.5 mg/dL (0.55-1.3); SGOT/AST 14 U/L (15-37)
[2021-04-30 12:07] LABS: TOT PROT 6.1 g/dl (6.4-8.2)
[2021-04-30 12:08] LABS: ALK PHOS 79 U/L (45-117)
[2021-04-30 12:09] LABS: BILIRUBIN,TOTAL 0.6 mg/dL (0.2-1); SGPT/ALT < 6 U/L (13-61)
[2021-04-30] MEDS ORDERED: ROCURONIUM BROMIDE 50 MG/5 ML SYRINGE ONE (13:06)
[2021-04-30] MEDS ORDERED: ETOMIDATE 20 MG/10 ML AMPUL IVPUSH ONE (13:06)
[2021-04-30] MEDS ORDERED: fentaNYL CITRATE 250 MCG/5 ML VIAL ONE (13:06)
[2021-04-30] MEDS ORDERED: MIDAZOLAM HCL 2 MG/2 ML SINGLE DOSE VIAL ONE (13:06)
[2021-04-30] MEDS ORDERED: VANCOMYCIN 1,000 MG VIAL (RESTRICTED TO ID ONLY) ONE (13:59)
[2021-04-30] MEDS ORDERED: VANCOMYCIN 500 MG VIAL (RESTRICTED TO ID ONLY) IVPB ONE (14:03)
[2021-04-30] MEDS ORDERED: NEOSTIGMINE METHYLSULFATE 0.5 MG/ML - 10 ML MDV ONE (14:29)
[2021-04-30] MEDS ORDERED: ONDANSETRON 4 MG/2 ML VIAL IVPUSH PRN (14:49)
[2021-04-30] MEDS: SODIUM CHLORIDE 1,000 ML IV SCH ×3 (16:44→22:17)
[2021-04-30] MEDS ORDERED: MAGNESIUM SULF 50% (8.12 MEQ/2 ML-1 GM VIAL) IVPB ONE (16:53)
[2021-04-30] MEDS ORDERED: HYDROmorphone HCl 2 MG/ML VIAL IVPUSH PRN (17:35)
[2021-04-30] MEDS ORDERED: ACETAMINOPHEN 325 MG TABLET (FP) PO PRN (17:35)
[2021-04-30] MEDS ORDERED: traZODone HCL 100 MG TABLET (FP) PO SCH (22:00)
[2021-04-30] MEDS ORDERED: APIXABAN 2.5 MG TABLET PO SCH (22:00)
[2021-04-30] MEDS: HYDROmorphone HCl 2 MG/ML VIAL IVPB PRN (22:16)
[2021-04-30] MEDS: APIXABAN 2.5 MG TABLET PO SCH (22:17)
[2021-04-30] MEDS: MELATONIN 5 MG TABLETS PO PRN (22:18)
[2021-04-30] MEDS: LIDOCAINE PATCH REMOVAL MC SCH (22:18)
[2021-05-01] MEDS: oxyCODONE HCL 5 MG TABLET PO SCH ×4 (01:03→17:55)
[2021-05-01] MEDS: HYDROmorphone HCl 2 MG/ML VIAL IVPB PRN ×2 (02:27→08:23)
[2021-05-01] MEDS: INSULIN SLIDING SCALE (NOVOLOG) 1 VIAL SQ SCH ×4 (06:00→21:51)
[2021-05-01] MEDS: LEVOTHYROXINE NA 112 MCG TABLET (FP) PO SCH (06:04)
[2021-05-01] MEDS ORDERED: LEVOTHYROXINE NA 112 MCG TABLET (FP) PO SCH (07:00)
[2021-05-01 08:36] LABS: BASO % 0.6 % (0-2.0); EOS % 2.2 % (0-4.5); HEMATOCRIT 24.5 % (32.4-45.2); HEMOGLOBIN 7.8 GM/dL (10.7-15.3); LYMPH % 14.8 % (8-40); MCH 29.5 pg (25.7-33.7); MCHC 31.9 g/dl (32.0-36.0); MEAN CELL VOLUME 92.5 fl (80-96); MEAN PLT VOLUME 9.3 fl (7.5-11.1); MONO % 10.8 % (3.8-10.2); NEUT % 71.6 % (42.8-82.8); PLATELET COUNT 328 10^3/uL (134-434); RBC 2.65 M/mm3 (3.60-5.2); RDW 14.4 % (11.6-15.6); WHITE BLOOD COUNT 9.2 K/mm3 (4.0-10.0)
[2021-05-01 08:56] LABS: CHLORIDE 107 mmol/L (98-107); SODIUM 140 mmol/L (136-145)
[2021-05-01 08:59] LABS: CALCIUM 8.9 mg/dL (8.5-10.1)
[2021-05-01 09:00] LABS: ALBUMIN 2.5 g/dl (3.4-5.0); ANION GAP 5 MMOL/L (8-16); BLOOD UREA NITROGEN 33.2 mg/dL (7-18); CO2 28 mmol/L (21-32); GLUCOSE,RANDOM 82 mg/dL (74-106); MAGNESIUM 2.6 mg/dL (1.8-2.4)
[2021-05-01 09:03] LABS: CREATININE 1.3 mg/dL (0.55-1.3); SGOT/AST 14 U/L (15-37)
[2021-05-01 09:04] LABS: BILIRUBIN,TOTAL 0.6 mg/dL (0.2-1); TOT PROT 6.1 g/dl (6.4-8.2)
[2021-05-01 09:06] LABS: ALK PHOS 75 U/L (45-117)
[2021-05-01 09:07] LABS: SGPT/ALT < 6 U/L (13-61)
[2021-05-01] MEDS ORDERED: FUROSEMIDE 40 MG TABLET (FP) PO SCH (10:00)
[2021-05-01] MEDS ORDERED: LOSARTAN POTASSIUM 50 MG TABLET PO SCH (10:00)
[2021-05-01] MEDS: MULTIVITAMINS (DAILY MVI) TABLET (FP) PO SCH (10:59)
[2021-05-01] MEDS: ZINC SULFATE 220 MG CAPSULE (FP) PO SCH (10:59)
[2021-05-01] MEDS: APIXABAN 2.5 MG TABLET PO SCH ×2 (11:00→21:50)
[2021-05-01] MEDS: LIDOCAINE 5% TOPICAL PATCH TP SCH (11:00)
[2021-05-01] MEDS: CARBIDOPA/LEVODOPA 25/100 TABLET (FP) PO SCH (11:00)
[2021-05-01] MEDS: DOCUSATE SODIUM 100 MG CAPSULE (FP) PO SCH (11:00)
[2021-05-01] MEDS: ASCORBIC ACID 250 MG TABLET (FP) PO SCH (11:01)
[2021-05-01] MEDS: SODIUM CHLORIDE 1,000 ML IV SCH ×2 (15:29→21:45)
[2021-05-01] MEDS: MELATONIN 5 MG TABLETS PO PRN (21:50)
[2021-05-01] MEDS: LIDOCAINE PATCH REMOVAL MC SCH (21:51)
[2021-05-02] MEDS: oxyCODONE HCL 5 MG TABLET PO SCH ×3 (00:36→13:55)
[2021-05-02] MEDS: SODIUM CHLORIDE 1,000 ML IV SCH (00:40)
[2021-05-02] MEDS: LEVOTHYROXINE NA 112 MCG TABLET (FP) PO SCH (06:11)
[2021-05-02] MEDS: INSULIN SLIDING SCALE (NOVOLOG) 1 VIAL SQ SCH ×3 (06:12→16:12)
[2021-05-02] MEDS: LIDOCAINE 5% TOPICAL PATCH TP SCH (09:55)
[2021-05-02] MEDS: MULTIVITAMINS (DAILY MVI) TABLET (FP) PO SCH (09:56)
[2021-05-02] MEDS: ASCORBIC ACID 250 MG TABLET (FP) PO SCH (09:56)
[2021-05-02] MEDS: CARBIDOPA/LEVODOPA 25/100 TABLET (FP) PO SCH (09:56)
[2021-05-02] MEDS: ZINC SULFATE 220 MG CAPSULE (FP) PO SCH (09:57)
[2021-05-02] MEDS: APIXABAN 2.5 MG TABLET PO SCH (09:57)
[2021-05-02] MEDS: DOCUSATE SODIUM 100 MG CAPSULE (FP) PO SCH (09:57)
[2021-05-02] MEDS ORDERED: RANOLAZINE E.R. 500 MG TABLET (FP) PO SCH (10:00)
[2021-05-02] MEDS: HYDROmorphone HCl 2 MG/ML VIAL IVPB PRN (10:55)
[2021-05-02 14:57] VITALS: BP 128/74; PULSE 93; TEMP 98.2
== END 2021-05-02 18:08 | disposition home or self-care (01) | DRG 181 ==
LOC: JER 22:47 → JERBED 04-21 05:10 → J6S 04-22 22:55 → J4S 04-24 23:45 → J6S 04-30 02:59
PROVIDERS: ADMIT Internal Medicine
PROC: 04CS0ZZ Extirpation of Matter from Left Posterior Tibial Artery, Open Approach (ICD-10-PCS; 2021-04-25)
PROC: 04CN0ZZ Extirpation of Matter from Left Popliteal Artery, Open Approach (ICD-10-PCS; 2021-04-25)
PROC: 04CQ0ZZ Extirpation of Matter from Left Anterior Tibial Artery, Open Approach (ICD-10-PCS; 2021-04-25)
PROC: 04CS0ZZ Extirpation of Matter from Left Posterior Tibial Artery, Open Approach (ICD-10-PCS; 2021-04-25)
PROC: 04CU0ZZ Extirpation of Matter from Left Peroneal Artery, Open Approach (ICD-10-PCS; 2021-04-25)
PROC: 04U Lower Arteries, Supplement (ICD-10-PCS; 2021-04-25)
PROC: 0YJ Anatomical Regions, Lower Extremities, Inspection (ICD-10-PCS; 2021-04-25)
PROC: B40GYZZ Plain Radiography of Left Lower Extremity Arteries using Other Contrast (ICD-10-PCS; 2021-04-25)
PROC: 30233N1 Transfusion of Nonautologous Red Blood Cells into Peripheral Vein, Percutaneous Approach (ICD-10-PCS; 2021-04-25)
PROC: 30233K1 Transfusion of Nonautologous Frozen Plasma into Peripheral Vein, Percutaneous Approach (ICD-10-PCS; 2021-04-25)
PROC: 04CL0ZZ Extirpation of Matter from Left Femoral Artery, Open Approach (ICD-10-PCS; principal; 2021-04-25 11:30)
PROC: 0Y6J0Z1 Detachment at Left Lower Leg, High, Open Approach (ICD-10-PCS; 2021-04-30)
DX: E11.52 Type 2 diabetes mellitus with diabetic peripheral angiopathy with gangrene (principal); L97.828 Non-pressure chronic ulcer of other part of left lower leg with other specified severity; I70.262 Atherosclerosis of native arteries of extremities with gangrene, left leg; G81.91 Hemiplegia, unspecified affecting right dominant side; U07.1 COVID-19; E03.9 Hypothyroidism, unspecified; I25.10 Atherosclerotic heart disease of native coronary artery without angina pectoris; E78.5 Hyperlipidemia, unspecified; I48.0 Paroxysmal atrial fibrillation; R32 Unspecified urinary incontinence; I77.1 Stricture of artery; E11.65 Type 2 diabetes mellitus with hyperglycemia; N17.9 Acute kidney failure, unspecified; D64.9 Anemia, unspecified; N39.0 Urinary tract infection, site not specified; J44.9 Chronic obstructive pulmonary disease, unspecified; F32.A Depression, unspecified; G20 Parkinson's disease; I13.0 Hypertensive heart and chronic kidney disease with heart failure and stage 1 through stage 4 chronic kidney disease, or unspecified chronic kidney disease; I50.42 Chronic combined systolic (congestive) and diastolic (congestive) heart failure; N18.9 Chronic kidney disease, unspecified; E11.22 Type 2 diabetes mellitus with diabetic chronic kidney disease; R94.31 Abnormal electrocardiogram [ECG] [EKG]; Z99.3 Dependence on wheelchair; Z95.1 Presence of aortocoronary bypass graft
CPT/HCPCS: 36415; 36430; 71045-TC-FY; 75635-TC; 76000-TC-FY; 80048; 80053; 81003; 82550; 82728; 82803; 82962; 83540; 83550; 83605; 83735; 84100; 84484; 85025; 85027; 85610; 85651; 85730; 86140; 86850; 86900; 86901; 86922; 87040; 87086; 93005; 93010; 94760; 97162-GP; 99285-25; C9803; J0131; J1644; P9017; P9058; Q9967; U0003; U0005

== ENCOUNTER 2021-06-20 04:16 | Inpatient (IN) | payer OTHER ==
[2021-06-18 16:51] VITALS: BMI 23.2
[2021-06-20] MEDS ORDERED: LIDOCAINE HCL 1%, 10 MG/ML (20ML VIAL) ONE (09:59)
[2021-06-20] MEDS ORDERED: ROPIVACAINE HCL 0.5% 30ML VIAL ONE (10:02)
[2021-06-20] MEDS ORDERED: DEXMEDETOMIDINE HCL 200 MCG/2 ML IVPB ONE (10:35)
[2021-06-20] MEDS ORDERED: MIDAZOLAM HCL 2 MG/2 ML SINGLE DOSE VIAL ONE (10:37)
[2021-06-20 10:38] LABS: BASO % 0.7 % (0-2.0); EOS % 2.1 % (0-4.5); HEMATOCRIT 25.4 % (32.4-45.2); HEMOGLOBIN 8.4 GM/dL (10.7-15.3); LYMPH % 17.8 % (8-40); MCHC 33.2 g/dl (32.0-36.0); MEAN CELL VOLUME 90.6 fl (80-96); MEAN PLT VOLUME 8.6 fl (7.5-11.1); MONO % 6.4 % (3.8-10.2); PLATELET COUNT 368 10^3/uL (134-434); RDW 15.3 % (11.6-15.6); WHITE BLOOD COUNT 9.9 K/mm3 (4.0-10.0)
[2021-06-20 11:03] LABS: ALBUMIN 2.7 g/dl (3.4-5.0); BLOOD UREA NITROGEN 45.6 mg/dL (7-18); CALCIUM 9.3 mg/dL (8.5-10.1)
[2021-06-20 11:06] LABS: CREATININE 1.5 mg/dL (0.55-1.3)
[2021-06-20 11:08] LABS: BILIRUBIN,TOTAL 0.3 mg/dL (0.2-1)
[2021-06-20] MEDS ORDERED: ONDANSETRON 4 MG/2 ML VIAL IVPUSH PRN (12:40)
[2021-06-20] MEDS ORDERED: LACTATED RINGERS SOLUTION 1000 ML INFUS.BAG IV ONE (13:39)
[2021-06-20] MEDS ORDERED: PATIENT'S OWN MEDICATION (NON-FORMULARY) (Alirocumab [Praluent Pen] 75 MG/ML Pen.Injctr) SQ SCH (14:00)
[2021-06-20] MEDS ORDERED: ALBUTEROL SO4 HFA INHALER IH PRN (15:59)
[2021-06-20] MEDS: LEVOTHYROXINE NA 100 MCG TABLET (FP) PO SCH (18:17)
[2021-06-20] MEDS: LACTATED RINGERS SOLUTION 1,000 ML IV SCH (18:17)
[2021-06-20] MEDS: INSULIN SLIDING SCALE (NOVOLOG) 1 VIAL SQ SCH (18:21)
[2021-06-20] MEDS ORDERED: RANOLAZINE E.R. 500 MG TABLET (FP) PO SCH (22:00)
[2021-06-20] MEDS: RANOLAZINE E.R. 500 MG TABLET (FP) PO SCH (22:37)
[2021-06-20] MEDS: DOCUSATE SODIUM 100 MG CAPSULE (FP) PO SCH (22:37)
[2021-06-20] MEDS: APIXABAN 5 MG TABLET PO SCH (22:37)
[2021-06-20] MEDS: oxyCODONE HCL 5 MG TABLET PO PRN (23:56)
[2021-06-21] MEDS: INSULIN SLIDING SCALE (NOVOLOG) 1 VIAL SQ SCH ×3 (06:30→16:22)
[2021-06-21] MEDS: LEVOTHYROXINE NA 100 MCG TABLET (FP) PO SCH (06:31)
[2021-06-21 09:26] LABS: BASO % 0.8 % (0-2.0); EOS % 0.2 % (0-4.5); HEMATOCRIT 22.9 % (32.4-45.2); HEMOGLOBIN 7.5 GM/dL (10.7-15.3); LYMPH % 10.5 % (8-40); MCH 29.3 pg (25.7-33.7); MCHC 32.9 g/dl (32.0-36.0); MEAN CELL VOLUME 89.1 fl (80-96); MEAN PLT VOLUME 9.1 fl (7.5-11.1); MONO % 6.6 % (3.8-10.2); NEUT % 81.9 % (42.8-82.8); PLATELET COUNT 355 10^3/uL (134-434); RBC 2.56 M/mm3 (3.60-5.2); RDW 15.2 % (11.6-15.6); WHITE BLOOD COUNT 13.5 K/mm3 (4.0-10.0)
[2021-06-21 09:55] LABS: CALCIUM 8.8 mg/dL (8.5-10.1)
[2021-06-21 09:56] LABS: ALBUMIN 2.4 g/dl (3.4-5.0); MAGNESIUM 2.4 mg/dL (1.8-2.4)
[2021-06-21 09:59] LABS: CREATININE 1.3 mg/dL (0.55-1.3); PHOSPHOROUS 3.9 mg/dL (2.5-4.9)
[2021-06-21 10:00] LABS: BILIRUBIN,TOTAL 0.4 mg/dL (0.2-1); TOT PROT 6.6 g/dl (6.4-8.2)
[2021-06-21] MEDS ORDERED: LOSARTAN POTASSIUM 50 MG TABLET PO SCH (10:00)
[2021-06-21] MEDS ORDERED: FUROSEMIDE 40 MG TABLET (FP) PO SCH (10:00)
[2021-06-21] MEDS ORDERED: PATIENT'S OWN MEDICATION (NON-FORMULARY) (Ertugliflozin Pidolate [Steglatro] 5 MG Tablet) PO SCH (10:00)
[2021-06-21] MEDS ORDERED: VANCOMYCIN/WATER FOR INJ (PEG) 1,000 MG/200 ML BAG IVPB ONE (10:00)
[2021-06-21] MEDS: DOCUSATE SODIUM 100 MG CAPSULE (FP) PO SCH ×2 (10:02→21:28)
[2021-06-21] MEDS: RANOLAZINE E.R. 500 MG TABLET (FP) PO SCH ×2 (10:03→21:28)
[2021-06-21] MEDS: APIXABAN 5 MG TABLET PO SCH ×2 (10:03→21:28)
[2021-06-21] MEDS: CARBIDOPA/LEVODOPA 25/100 TABLET (FP) PO SCH (10:16)
[2021-06-21] MEDS: oxyCODONE HCL 5 MG TABLET PO PRN ×2 (10:18→17:32)
[2021-06-21] MEDS ORDERED: FUROSEMIDE 40 MG/4 ML INJECTABLE VIAL IVPUSH SCH (11:30)
[2021-06-21] MEDS ORDERED: DEXTROSE 5%-WATER - 50 ML IVPB ONE (12:32)
[2021-06-21] MEDS ORDERED: cefTRIAXone SODIUM 1 GM VIAL ONE (12:32)
[2021-06-21] MEDS: POLYETHYLENE GLYCOL (HEALTHYLAX) 3350 17 GM PACKET PO SCH (12:35)
[2021-06-21] MEDS: CEFTRIAXONE 1 GM in DEXTROSE 5%-WATER - 50 ML IVPB SCH (12:36)
[2021-06-21] MEDS: FUROSEMIDE 40 MG TABLET (FP) PO SCH (12:36)
[2021-06-21 16:45] LABS: EPI CELLS 11 /uL (0-25.1); HYALINE CASTS 1 /uL (0-3.1); PH,URINE 5.5 (5.0-8.0); URINE APPEARANCE TURBID; URINE BILIRUBIN NEGATIVE (NEGATIVE); URINE COLOR YELLOW; URINE GLUCOSE (UA) 2+ (NEGATIVE); URINE KETONE NEGATIVE (NEGATIVE); URINE LEUK ESTERASE 3+ (NEGATIVE); URINE NITRITE POSITIVE (NEGATIVE); URINE PROTEIN 2+ (NEGATIVE); URINE RBC 95 /uL (0-23.9); URINE UROBILINOGEN 0.2 mg/dL (0.2-1.0); URINE WBC 7648 /uL (0-25.8)
[2021-06-21 17:24] LABS: URINE BACTERIA 561 /uL (0-1359)
[2021-06-21] MEDS: LACTATED RINGERS SOLUTION 1,000 ML IV SCH (17:27)
[2021-06-21] MEDS: SENNOSIDES 8.6MG TABLET (FP) PO SCH (21:28)
[2021-06-22] MEDS: oxyCODONE HCL 5 MG TABLET PO PRN ×4 (01:20→21:25)
[2021-06-22 06:08] LABS: SARS-CoV-2 NAA Not Detected (Not Detected)
[2021-06-22] MEDS: INSULIN SLIDING SCALE (NOVOLOG) 1 VIAL SQ SCH ×3 (06:20→16:11)
[2021-06-22] MEDS: LEVOTHYROXINE NA 100 MCG TABLET (FP) PO SCH (06:22)
[2021-06-22] MEDS ORDERED: cefTRIAXone SODIUM 1 GM VIAL ONE (07:38)
[2021-06-22] MEDS ORDERED: DEXTROSE 5%-WATER - 50 ML IVPB ONE (07:38)
[2021-06-22 08:39] LABS: BASO % 0.8 % (0-2.0); EOS % 0.5 % (0-4.5); HEMATOCRIT 21.7 % (32.4-45.2); HEMOGLOBIN 7.1 GM/dL (10.7-15.3); LYMPH % 11.6 % (8-40); MCH 29.1 pg (25.7-33.7); MCHC 32.5 g/dl (32.0-36.0); MEAN CELL VOLUME 89.6 fl (80-96); MEAN PLT VOLUME 9.1 fl (7.5-11.1); MONO % 7.8 % (3.8-10.2); NEUT % 79.3 % (42.8-82.8); PLATELET COUNT 322 10^3/uL (134-434); RBC 2.42 M/mm3 (3.60-5.2); RDW 15.2 % (11.6-15.6); WHITE BLOOD COUNT 13.9 K/mm3 (4.0-10.0)
[2021-06-22] MEDS: CEFTRIAXONE 1 GM in DEXTROSE 5%-WATER - 50 ML IVPB SCH (08:59)
[2021-06-22] MEDS: APIXABAN 5 MG TABLET PO SCH ×2 (09:00→21:25)
[2021-06-22] MEDS: POLYETHYLENE GLYCOL (HEALTHYLAX) 3350 17 GM PACKET PO SCH (09:00)
[2021-06-22] MEDS: FUROSEMIDE 40 MG TABLET (FP) PO SCH (09:00)
[2021-06-22] MEDS: CARBIDOPA/LEVODOPA 25/100 TABLET (FP) PO SCH (09:00)
[2021-06-22] MEDS: DOCUSATE SODIUM 100 MG CAPSULE (FP) PO SCH ×2 (09:00→21:25)
[2021-06-22] MEDS: RANOLAZINE E.R. 500 MG TABLET (FP) PO SCH ×2 (09:00→21:24)
[2021-06-22 09:05] LABS: ALBUMIN 2.4 g/dl (3.4-5.0); CALCIUM 8.8 mg/dL (8.5-10.1)
[2021-06-22 09:06] LABS: BLOOD UREA NITROGEN 44.7 mg/dL (7-18); MAGNESIUM 2.7 mg/dL (1.8-2.4)
[2021-06-22 09:08] LABS: CREATININE 1.5 mg/dL (0.55-1.3); PHOSPHOROUS 4.6 mg/dL (2.5-4.9)
[2021-06-22 09:09] LABS: BILIRUBIN,TOTAL 0.4 mg/dL (0.2-1); TOT PROT 6.7 g/dl (6.4-8.2)
[2021-06-22] MEDS ORDERED: VANCOMYCIN 1 GM in D5W (PRE-DOCKED) 1,000 MG/250 ML IVPB SCH (10:00)
[2021-06-22] MEDS ORDERED: GLYCERIN 1 RECTAL SUPPOSITORY, ADULT PR ONE (15:02)
[2021-06-22] MEDS: SENNOSIDES 8.6MG TABLET (FP) PO SCH (21:25)
[2021-06-23] MEDS: INSULIN SLIDING SCALE (NOVOLOG) 1 VIAL SQ SCH ×3 (06:19→17:22)
[2021-06-23] MEDS: oxyCODONE HCL 5 MG TABLET PO PRN ×3 (06:20→20:59)
[2021-06-23] MEDS: LEVOTHYROXINE NA 100 MCG TABLET (FP) PO SCH (06:20)
[2021-06-23] MEDS ORDERED: DEXTROSE 5%-WATER - 50 ML IVPB ONE (08:01)
[2021-06-23] MEDS ORDERED: cefTRIAXone SODIUM 1 GM VIAL ONE (08:01)
[2021-06-23] MEDS: RANOLAZINE E.R. 500 MG TABLET (FP) PO SCH ×2 (10:33→20:59)
[2021-06-23] MEDS: CEFTRIAXONE 1 GM in DEXTROSE 5%-WATER - 50 ML IVPB SCH (10:33)
[2021-06-23] MEDS: APIXABAN 5 MG TABLET PO SCH ×2 (10:34→21:00)
[2021-06-23] MEDS: POLYETHYLENE GLYCOL (HEALTHYLAX) 3350 17 GM PACKET PO SCH (10:34)
[2021-06-23] MEDS: DOCUSATE SODIUM 100 MG CAPSULE (FP) PO SCH ×2 (10:34→20:59)
[2021-06-23] MEDS: FUROSEMIDE 40 MG TABLET (FP) PO SCH (10:35)
[2021-06-23] MEDS: CARBIDOPA/LEVODOPA 25/100 TABLET (FP) PO SCH (10:36)
[2021-06-23] MEDS ORDERED: PIPERACILLIN/TAZOB 3.375 GM 3.375 GM in DEXTROSE 5%-WATER - 50 ML IVPB SCH (13:45)
[2021-06-23] MEDS ORDERED: DEXTROSE 5%-WATER 100 ML IVPB ONE ×2 (14:38→16:47)
[2021-06-23] MEDS ORDERED: MEROPENEM 1 GM VIAL (RESTRICTED TO ID) IVPB ONE ×2 (14:38→16:47)
[2021-06-23] MEDS: MEROPENEM 1 GM in DEXTROSE 5%-WATER 100 ML IVPB SCH ×2 (14:43→17:04)
[2021-06-23] MEDS ORDERED: MEROPENEM 1 GM in DEXTROSE 5%-WATER 100 ML IVPB SCH (18:00)
[2021-06-23] MEDS: SENNOSIDES 8.6MG TABLET (FP) PO SCH (21:00)
[2021-06-23] MEDS: ACETAMINOPHEN 325 MG TABLET (FP) PO PRN (21:00)
[2021-06-24] MEDS ORDERED: DEXTROSE 5%-WATER 100 ML IVPB ONE ×3 (00:51→14:39)
[2021-06-24] MEDS ORDERED: MEROPENEM 1 GM VIAL (RESTRICTED TO ID) IVPB ONE ×3 (00:51→14:39)
[2021-06-24] MEDS: MEROPENEM 1 GM in DEXTROSE 5%-WATER 100 ML IVPB SCH ×3 (01:07→17:05)
[2021-06-24] MEDS: oxyCODONE HCL 5 MG TABLET PO PRN ×2 (06:20→13:15)
[2021-06-24] MEDS: LEVOTHYROXINE NA 100 MCG TABLET (FP) PO SCH (06:20)
[2021-06-24] MEDS: INSULIN SLIDING SCALE (NOVOLOG) 1 VIAL SQ SCH ×3 (06:20→16:04)
[2021-06-24] MEDS: POLYETHYLENE GLYCOL (HEALTHYLAX) 3350 17 GM PACKET PO SCH (09:05)
[2021-06-24] MEDS: FUROSEMIDE 40 MG TABLET (FP) PO SCH (09:06)
[2021-06-24] MEDS: CARBIDOPA/LEVODOPA 25/100 TABLET (FP) PO SCH (09:06)
[2021-06-24] MEDS: DOCUSATE SODIUM 100 MG CAPSULE (FP) PO SCH ×2 (09:06→22:03)
[2021-06-24] MEDS: RANOLAZINE E.R. 500 MG TABLET (FP) PO SCH ×2 (09:06→22:03)
[2021-06-24] MEDS: APIXABAN 5 MG TABLET PO SCH ×2 (09:07→22:03)
[2021-06-24 09:41] LABS: BASO % 0.6 % (0-2.0); EOS % 1.5 % (0-4.5); HEMATOCRIT 23.6 % (32.4-45.2); HEMOGLOBIN 7.7 GM/dL (10.7-15.3); LYMPH % 7.7 % (8-40); MCHC 32.5 g/dl (32.0-36.0); MEAN CELL VOLUME 89.2 fl (80-96); MEAN PLT VOLUME 9.3 fl (7.5-11.1); MONO % 5.2 % (3.8-10.2); PLATELET COUNT 415 10^3/uL (134-434); RBC 2.65 M/mm3 (3.60-5.2); RDW 15.3 % (11.6-15.6); WHITE BLOOD COUNT 12.3 K/mm3 (4.0-10.0)
[2021-06-24 10:07] LABS: ALBUMIN 2.4 g/dl (3.4-5.0); BLOOD UREA NITROGEN 36.4 mg/dL (7-18); CALCIUM 9.1 mg/dL (8.5-10.1); MAGNESIUM 2.6 mg/dL (1.8-2.4)
[2021-06-24 10:09] LABS: CREATININE 1.3 mg/dL (0.55-1.3)
[2021-06-24 10:10] LABS: PHOSPHOROUS 4.4 mg/dL (2.5-4.9)
[2021-06-24 10:11] LABS: BILIRUBIN,TOTAL 0.4 mg/dL (0.2-1)
[2021-06-24] MEDS: LOSARTAN POTASSIUM 25 MG TABLET PO SCH (15:00)
[2021-06-24 17:03] LABS: EPI CELLS 8 /uL (0-25.1); HYALINE CASTS 1 /uL (0-3.1); PH,URINE 5.5 (5.0-8.0); URINE APPEARANCE TURBID; URINE BACTERIA 42 /uL (0-1359); URINE BILIRUBIN NEGATIVE (NEGATIVE); URINE COLOR YELLOW; URINE GLUCOSE (UA) TRACE (NEGATIVE); URINE KETONE NEGATIVE (NEGATIVE); URINE LEUK ESTERASE 3+ (NEGATIVE); URINE NITRITE NEGATIVE (NEGATIVE); URINE PROTEIN 1+ (NEGATIVE); URINE RBC 24 /uL (0-23.9); URINE UROBILINOGEN 0.2 mg/dL (0.2-1.0); URINE WBC 3552 /uL (0-25.8)
[2021-06-24 17:30] LABS: CREATININE, URINE RANDOM < 13.0 mg/dL (30-150)
[2021-06-24] MEDS: SENNOSIDES 8.6MG TABLET (FP) PO SCH (22:03)
[2021-06-25] MEDS: oxyCODONE HCL 5 MG TABLET PO PRN ×3 (00:55→20:01)
[2021-06-25] MEDS ORDERED: MEROPENEM 1 GM VIAL (RESTRICTED TO ID) IVPB ONE ×3 (01:22→16:22)
[2021-06-25] MEDS ORDERED: DEXTROSE 5%-WATER 100 ML IVPB ONE ×3 (01:22→16:22)
[2021-06-25] MEDS: MEROPENEM 1 GM in DEXTROSE 5%-WATER 100 ML IVPB SCH ×3 (01:27→17:04)
[2021-06-25] MEDS: LEVOTHYROXINE NA 100 MCG TABLET (FP) PO SCH (06:03)
[2021-06-25] MEDS: INSULIN SLIDING SCALE (NOVOLOG) 1 VIAL SQ SCH ×3 (06:09→16:24)
[2021-06-25] MEDS: RANOLAZINE E.R. 500 MG TABLET (FP) PO SCH ×2 (09:19→22:20)
[2021-06-25] MEDS: FUROSEMIDE 40 MG TABLET (FP) PO SCH (09:20)
[2021-06-25] MEDS: DOCUSATE SODIUM 100 MG CAPSULE (FP) PO SCH ×2 (09:20→22:20)
[2021-06-25] MEDS: LOSARTAN POTASSIUM 25 MG TABLET PO SCH (09:20)
[2021-06-25] MEDS: APIXABAN 5 MG TABLET PO SCH ×2 (09:20→22:20)
[2021-06-25] MEDS: POLYETHYLENE GLYCOL (HEALTHYLAX) 3350 17 GM PACKET PO SCH (09:20)
[2021-06-25] MEDS: CARBIDOPA/LEVODOPA 25/100 TABLET (FP) PO SCH (09:20)
[2021-06-25] MEDS ORDERED: SODIUM CHLORIDE 1,000 ML IV SCH (09:45)
[2021-06-25 11:02] LABS: HEMATOCRIT 24.1 % (32.4-45.2); HEMOGLOBIN 7.8 GM/dL (10.7-15.3); MCH 28.8 pg (25.7-33.7); MCHC 32.3 g/dl (32.0-36.0); MEAN CELL VOLUME 89.1 fl (80-96); MEAN PLT VOLUME 8.7 fl (7.5-11.1); PLATELET COUNT 433 10^3/uL (134-434); RDW 15.6 % (11.6-15.6); WHITE BLOOD COUNT 10.2 K/mm3 (4.0-10.0)
[2021-06-25 11:19] LABS: CALCIUM 9.1 mg/dL (8.5-10.1)
[2021-06-25 11:20] LABS: ALBUMIN 2.4 g/dl (3.4-5.0); BLOOD UREA NITROGEN 33.4 mg/dL (7-18); MAGNESIUM 2.5 mg/dL (1.8-2.4)
[2021-06-25 11:22] LABS: PHOSPHOROUS 3.7 mg/dL (2.5-4.9)
[2021-06-25 11:23] LABS: CREATININE 1.3 mg/dL (0.55-1.3)
[2021-06-25 11:24] LABS: BILIRUBIN,TOTAL 0.3 mg/dL (0.2-1); TOT PROT 6.5 g/dl (6.4-8.2)
[2021-06-25] MEDS: SENNOSIDES 8.6MG TABLET (FP) PO SCH (22:21)
[2021-06-25] MEDS: ACETAMINOPHEN 325 MG TABLET (FP) PO PRN (22:45)
[2021-06-26] MEDS ORDERED: MEROPENEM 1 GM VIAL (RESTRICTED TO ID) IVPB ONE ×3 (00:54→16:48)
[2021-06-26] MEDS ORDERED: DEXTROSE 5%-WATER 100 ML IVPB ONE ×3 (00:54→16:48)
[2021-06-26] MEDS: MEROPENEM 1 GM in DEXTROSE 5%-WATER 100 ML IVPB SCH ×3 (01:03→17:24)
[2021-06-26] MEDS: LEVOTHYROXINE NA 100 MCG TABLET (FP) PO SCH (06:04)
[2021-06-26] MEDS: INSULIN SLIDING SCALE (NOVOLOG) 1 VIAL SQ SCH ×3 (06:04→17:22)
[2021-06-26 09:07] LABS: BASO % 0.6 % (0-2.0); HEMATOCRIT 24.5 % (32.4-45.2); HEMOGLOBIN 7.8 GM/dL (10.7-15.3); LYMPH % 14.6 % (8-40); MCH 28.8 pg (25.7-33.7); MCHC 31.8 g/dl (32.0-36.0); MEAN CELL VOLUME 90.4 fl (80-96); MEAN PLT VOLUME 8.8 fl (7.5-11.1); MONO % 8.7 % (3.8-10.2); NEUT % 74.1 % (42.8-82.8); PLATELET COUNT 405 10^3/uL (134-434); RBC 2.71 M/mm3 (3.60-5.2); RDW 15.8 % (11.6-15.6); WHITE BLOOD COUNT 12.4 K/mm3 (4.0-10.0)
[2021-06-26 09:18] LABS: CHLORIDE 102 mmol/L (98-107); SODIUM 134 mmol/L (136-145)
[2021-06-26 09:20] LABS: CALCIUM 8.8 mg/dL (8.5-10.1)
[2021-06-26 09:21] LABS: ALBUMIN 2.4 g/dl (3.4-5.0); ANION GAP 9 MMOL/L (8-16); BLOOD UREA NITROGEN 33.3 mg/dL (7-18); CO2 23 mmol/L (21-32); GLUCOSE,RANDOM 88 mg/dL (74-106); MAGNESIUM 2.4 mg/dL (1.8-2.4)
[2021-06-26 09:24] LABS: CREATININE 1.2 mg/dL (0.55-1.3); PHOSPHOROUS 3.9 mg/dL (2.5-4.9); SGOT/AST 13 U/L (15-37); SGPT/ALT < 6 U/L (13-61)
[2021-06-26 09:26] LABS: BILIRUBIN,TOTAL 0.2 mg/dL (0.2-1); TOT PROT 6.4 g/dl (6.4-8.2)
[2021-06-26 09:27] LABS: ALK PHOS 72 U/L (45-117)
[2021-06-26] MEDS: DOCUSATE SODIUM 100 MG CAPSULE (FP) PO SCH ×2 (10:06→21:02)
[2021-06-26] MEDS: APIXABAN 5 MG TABLET PO SCH ×3 (10:06→21:02)
[2021-06-26] MEDS: POLYETHYLENE GLYCOL (HEALTHYLAX) 3350 17 GM PACKET PO SCH ×2 (10:06→11:12)
[2021-06-26] MEDS: FUROSEMIDE 40 MG TABLET (FP) PO SCH ×2 (10:06→11:09)
[2021-06-26] MEDS: CARBIDOPA/LEVODOPA 25/100 TABLET (FP) PO SCH ×2 (10:07→11:11)
[2021-06-26] MEDS: RANOLAZINE E.R. 500 MG TABLET (FP) PO SCH ×3 (10:07→21:01)
[2021-06-26] MEDS: ACETAMINOPHEN 325 MG TABLET (FP) PO PRN ×2 (11:11→17:24)
[2021-06-26] MEDS: oxyCODONE HCL 5 MG TABLET PO PRN ×2 (11:11→17:25)
[2021-06-26] MEDS: SENNOSIDES 8.6MG TABLET (FP) PO SCH (21:02)
[2021-06-27] MEDS ORDERED: MEROPENEM 1 GM VIAL (RESTRICTED TO ID) IVPB ONE ×3 (00:31→16:36)
[2021-06-27] MEDS ORDERED: DEXTROSE 5%-WATER 100 ML IVPB ONE ×3 (00:32→16:36)
[2021-06-27] MEDS: MEROPENEM 1 GM in DEXTROSE 5%-WATER 100 ML IVPB SCH ×3 (01:03→17:11)
[2021-06-27] MEDS: oxyCODONE HCL 5 MG TABLET PO PRN ×2 (04:27→09:30)
[2021-06-27] MEDS: INSULIN SLIDING SCALE (NOVOLOG) 1 VIAL SQ SCH (06:41)
[2021-06-27] MEDS: LEVOTHYROXINE NA 100 MCG TABLET (FP) PO SCH (06:41)
[2021-06-27] MEDS: DOCUSATE SODIUM 100 MG CAPSULE (FP) PO SCH ×2 (09:00→21:32)
[2021-06-27] MEDS: RANOLAZINE E.R. 500 MG TABLET (FP) PO SCH ×2 (09:00→21:32)
[2021-06-27] MEDS: POLYETHYLENE GLYCOL (HEALTHYLAX) 3350 17 GM PACKET PO SCH ×2 (09:00→21:33)
[2021-06-27] MEDS: ACETAMINOPHEN 325 MG TABLET (FP) PO PRN (09:00)
[2021-06-27] MEDS: FUROSEMIDE 40 MG TABLET (FP) PO SCH (09:00)
[2021-06-27] MEDS: CARBIDOPA/LEVODOPA 25/100 TABLET (FP) PO SCH (09:00)
[2021-06-27] MEDS: APIXABAN 5 MG TABLET PO SCH ×2 (09:00→21:32)
[2021-06-27] MEDS ORDERED: HYDROmorphone HCl 2 MG/ML VIAL ONE (11:33)
[2021-06-27] MEDS ORDERED: HYDROmorphone HCl 2 MG/ML VIAL IVPUSH ONE (11:33)
[2021-06-27] MEDS: ATORVASTATIN CA 80 MG TABLET (FP) PO SCH (21:32)
[2021-06-27] MEDS: SENNOSIDES 8.6MG TABLET (FP) PO SCH (21:32)
[2021-06-27] MEDS ORDERED: ATORVASTATIN CA 40 MG TABLET (FP) PO SCH (22:00)
[2021-06-28] MEDS ORDERED: MEROPENEM 1 GM VIAL (RESTRICTED TO ID) IVPB ONE ×3 (01:36→15:44)
[2021-06-28] MEDS ORDERED: DEXTROSE 5%-WATER 100 ML IVPB ONE ×3 (01:37→15:44)
[2021-06-28] MEDS: MEROPENEM 1 GM in DEXTROSE 5%-WATER 100 ML IVPB SCH ×3 (02:00→17:48)
[2021-06-28] MEDS: oxyCODONE HCL 5 MG TABLET PO PRN ×2 (02:10→16:19)
[2021-06-28] MEDS: LEVOTHYROXINE NA 100 MCG TABLET (FP) PO SCH (06:21)
[2021-06-28 08:19] LABS: HEMATOCRIT 24.7 % (32.4-45.2); MCH 28.6 pg (25.7-33.7); MCHC 32.2 g/dl (32.0-36.0); MEAN CELL VOLUME 88.5 fl (80-96); MEAN PLT VOLUME 8.6 fl (7.5-11.1); PLATELET COUNT 463 10^3/uL (134-434); RBC 2.79 M/mm3 (3.60-5.2); RDW 15.6 % (11.6-15.6); WHITE BLOOD COUNT 10.5 K/mm3 (4.0-10.0)
[2021-06-28 08:37] LABS: CHLORIDE 98 mmol/L (98-107); SODIUM 131 mmol/L (136-145)
[2021-06-28 08:44] LABS: ALBUMIN 2.4 g/dl (3.4-5.0); CALCIUM 9.2 mg/dL (8.5-10.1)
[2021-06-28 08:45] LABS: ANION GAP 6 MMOL/L (8-16); BLOOD UREA NITROGEN 40.7 mg/dL (7-18); CO2 26 mmol/L (21-32); GLUCOSE,RANDOM 88 mg/dL (74-106); MAGNESIUM 2.7 mg/dL (1.8-2.4)
[2021-06-28 08:47] LABS: CREATININE 1.6 mg/dL (0.55-1.3); SGOT/AST 8 U/L (15-37)
[2021-06-28 08:48] LABS: PHOSPHOROUS 4.8 mg/dL (2.5-4.9); SGPT/ALT < 6 U/L (13-61)
[2021-06-28 08:49] LABS: BILIRUBIN,TOTAL 0.4 mg/dL (0.2-1); TOT PROT 6.4 g/dl (6.4-8.2)
[2021-06-28 08:51] LABS: ALK PHOS 71 U/L (45-117)
[2021-06-28] MEDS: APIXABAN 5 MG TABLET PO SCH ×2 (09:07→21:18)
[2021-06-28] MEDS: DOCUSATE SODIUM 100 MG CAPSULE (FP) PO SCH ×2 (09:07→21:18)
[2021-06-28] MEDS: DULoxetine HCL 20 MG CAPSULE.DR PO SCH (09:07)
[2021-06-28] MEDS: RANOLAZINE E.R. 500 MG TABLET (FP) PO SCH ×2 (09:07→21:15)
[2021-06-28] MEDS: POLYETHYLENE GLYCOL (HEALTHYLAX) 3350 17 GM PACKET PO SCH ×2 (09:08→21:19)
[2021-06-28] MEDS: CARBIDOPA/LEVODOPA 25/100 TABLET (FP) PO SCH (09:08)
[2021-06-28] MEDS: FUROSEMIDE 40 MG TABLET (FP) PO SCH (09:08)
[2021-06-28] MEDS: SODIUM CHLORIDE 1,000 ML IV SCH (10:03)
[2021-06-28 12:06] LABS: ANISOCYTOSIS 2+; MACROCYTOSIS 0; OVALOCYTE 2+
[2021-06-28] MEDS: ATORVASTATIN CA 80 MG TABLET (FP) PO SCH (21:15)
[2021-06-28] MEDS: SENNOSIDES 8.6MG TABLET (FP) PO SCH (21:19)
[2021-06-29] MEDS ORDERED: DEXTROSE 5%-WATER 100 ML IVPB ONE ×4 (01:12→20:23)
[2021-06-29] MEDS ORDERED: MEROPENEM 1 GM VIAL (RESTRICTED TO ID) IVPB ONE ×3 (01:12→18:27)
[2021-06-29] MEDS: MEROPENEM 1 GM in DEXTROSE 5%-WATER 100 ML IVPB SCH ×3 (01:51→18:30)
[2021-06-29] MEDS: LEVOTHYROXINE NA 100 MCG TABLET (FP) PO SCH (06:05)
[2021-06-29 07:40] LABS: BASO % 1.2 % (0-2.0); EOS % 3.3 % (0-4.5); HEMATOCRIT 22.2 % (32.4-45.2); HEMOGLOBIN 7.2 GM/dL (10.7-15.3); LYMPH % 18.3 % (8-40); MCH 29.1 pg (25.7-33.7); MCHC 32.7 g/dl (32.0-36.0); MEAN PLT VOLUME 8.7 fl (7.5-11.1); MONO % 8.7 % (3.8-10.2); NEUT % 68.5 % (42.8-82.8); PLATELET COUNT 452 10^3/uL (134-434); RBC 2.49 M/mm3 (3.60-5.2); RDW 15.7 % (11.6-15.6); WHITE BLOOD COUNT 10.3 K/mm3 (4.0-10.0)
[2021-06-29 07:57] LABS: CHLORIDE 100 mmol/L (98-107); SODIUM 132 mmol/L (136-145)
[2021-06-29 08:02] LABS: CALCIUM 8.8 mg/dL (8.5-10.1)
[2021-06-29 08:03] LABS: ALBUMIN 2.3 g/dl (3.4-5.0); ANION GAP 8 MMOL/L (8-16); BLOOD UREA NITROGEN 46.9 mg/dL (7-18); CO2 24 mmol/L (21-32); GLUCOSE,RANDOM 93 mg/dL (74-106); MAGNESIUM 2.5 mg/dL (1.8-2.4)
[2021-06-29 08:05] LABS: SGPT/ALT < 6 U/L (13-61)
[2021-06-29 08:06] LABS: CREATININE 1.9 mg/dL (0.55-1.3); PHOSPHOROUS 4.8 mg/dL (2.5-4.9); SGOT/AST 10 U/L (15-37)
[2021-06-29 08:07] LABS: BILIRUBIN,TOTAL 0.3 mg/dL (0.2-1); TOT PROT 6.1 g/dl (6.4-8.2)
[2021-06-29 08:08] LABS: ALK PHOS 80 U/L (45-117)
[2021-06-29] MEDS: APIXABAN 5 MG TABLET PO SCH ×2 (09:52→21:11)
[2021-06-29] MEDS: DOCUSATE SODIUM 100 MG CAPSULE (FP) PO SCH ×2 (09:52→21:11)
[2021-06-29] MEDS: DULoxetine HCL 20 MG CAPSULE.DR PO SCH (09:52)
[2021-06-29] MEDS: RANOLAZINE E.R. 500 MG TABLET (FP) PO SCH ×2 (09:52→21:11)
[2021-06-29] MEDS: CARBIDOPA/LEVODOPA 25/100 TABLET (FP) PO SCH (09:52)
[2021-06-29] MEDS: oxyCODONE HCL 5 MG TABLET PO PRN ×2 (09:52→21:11)
[2021-06-29] MEDS: POLYETHYLENE GLYCOL (HEALTHYLAX) 3350 17 GM PACKET PO SCH ×2 (09:53→21:11)
[2021-06-29] MEDS: metoPROLOL SUCCINATE 25 MG TAB.SR.24H (FP) PO SCH (11:25)
[2021-06-29] MEDS ORDERED: MEROPENEM 500 MG VIAL (RESTRICTED TO ID) IVPB ONE (20:23)
[2021-06-29] MEDS: MEROPENEM 500 MG in DEXTROSE 5%-WATER 100 ML IVPB SCH (21:03)
[2021-06-29] MEDS: SENNOSIDES 8.6MG TABLET (FP) PO SCH (21:11)
[2021-06-29] MEDS: ATORVASTATIN CA 80 MG TABLET (FP) PO SCH (21:13)
[2021-06-30] MEDS: SODIUM CHLORIDE 1,000 ML IV SCH ×2 (00:50→09:32)
[2021-06-30] MEDS: LEVOTHYROXINE NA 100 MCG TABLET (FP) PO SCH (06:04)
[2021-06-30] MEDS ORDERED: MEROPENEM 500 MG VIAL (RESTRICTED TO ID) IVPB ONE ×2 (09:06→20:29)
[2021-06-30] MEDS ORDERED: DEXTROSE 5%-WATER 100 ML IVPB ONE ×2 (09:06→20:29)
[2021-06-30] MEDS: POLYETHYLENE GLYCOL (HEALTHYLAX) 3350 17 GM PACKET PO SCH ×2 (09:31→22:49)
[2021-06-30] MEDS: DOCUSATE SODIUM 100 MG CAPSULE (FP) PO SCH ×2 (09:31→22:48)
[2021-06-30] MEDS: metoPROLOL SUCCINATE 25 MG TAB.SR.24H (FP) PO SCH (09:31)
[2021-06-30] MEDS: DULoxetine HCL 20 MG CAPSULE.DR PO SCH (09:31)
[2021-06-30] MEDS: CARBIDOPA/LEVODOPA 25/100 TABLET (FP) PO SCH (09:31)
[2021-06-30] MEDS: APIXABAN 5 MG TABLET PO SCH ×2 (09:31→22:48)
[2021-06-30] MEDS: RANOLAZINE E.R. 500 MG TABLET (FP) PO SCH ×2 (09:32→22:48)
[2021-06-30] MEDS: MEROPENEM 500 MG in DEXTROSE 5%-WATER 100 ML IVPB SCH ×2 (09:32→20:43)
[2021-06-30] MEDS ORDERED: FUROSEMIDE 40 MG/4 ML INJECTABLE VIAL ONE (10:48)
[2021-06-30] MEDS ORDERED: FUROSEMIDE 40 MG/4 ML INJECTABLE VIAL IVPUSH ONE (11:08)
[2021-06-30 12:44] LABS: BASO % 1.1 % (0-2.0); EOS % 3.7 % (0-4.5); HEMATOCRIT 22.5 % (32.4-45.2); HEMOGLOBIN 7.1 GM/dL (10.7-15.3); LYMPH % 21.1 % (8-40); MCH 28.3 pg (25.7-33.7); MCHC 31.8 g/dl (32.0-36.0); MEAN PLT VOLUME 8.6 fl (7.5-11.1); MONO % 8.7 % (3.8-10.2); NEUT % 65.4 % (42.8-82.8); PLATELET COUNT 468 10^3/uL (134-434); RBC 2.53 M/mm3 (3.60-5.2); RDW 15.8 % (11.6-15.6); WHITE BLOOD COUNT 10.1 K/mm3 (4.0-10.0)
[2021-06-30 13:02] LABS: CHLORIDE 103 mmol/L (98-107); SODIUM 132 mmol/L (136-145)
[2021-06-30 13:04] LABS: ALBUMIN 2.3 g/dl (3.4-5.0); ANION GAP 7 MMOL/L (8-16); CALCIUM 8.5 mg/dL (8.5-10.1); CO2 22 mmol/L (21-32); GLUCOSE,RANDOM 96 mg/dL (74-106)
[2021-06-30 13:05] LABS: BLOOD UREA NITROGEN 45.2 mg/dL (7-18)
[2021-06-30 13:07] LABS: SGPT/ALT < 6 U/L (13-61)
[2021-06-30 13:08] LABS: CREATININE 1.8 mg/dL (0.55-1.3); SGOT/AST 8 U/L (15-37)
[2021-06-30 13:09] LABS: BILIRUBIN,TOTAL 0.3 mg/dL (0.2-1); TOT PROT 6.3 g/dl (6.4-8.2)
[2021-06-30 13:10] LABS: ALK PHOS 77 U/L (45-117)
[2021-06-30] MEDS ORDERED: ALBUTEROL SO4 HFA INHALER IH PRN (13:16)
[2021-06-30] MEDS: ACETAMINOPHEN 325 MG TABLET (FP) PO PRN (13:38)
[2021-06-30] MEDS: oxyCODONE HCL 5 MG TABLET PO PRN (20:42)
[2021-06-30] MEDS ORDERED: ATORVASTATIN CA 40 MG TABLET (FP) ONE (22:45)
[2021-06-30] MEDS: ATORVASTATIN CA 80 MG TABLET (FP) PO SCH (22:48)
[2021-06-30] MEDS: SENNOSIDES 8.6MG TABLET (FP) PO SCH (22:48)
[2021-07-01] MEDS: oxyCODONE HCL 5 MG TABLET PO PRN ×2 (02:54→14:12)
[2021-07-01] MEDS: ACETAMINOPHEN 325 MG TABLET (FP) PO PRN (04:27)
[2021-07-01] MEDS: LEVOTHYROXINE NA 100 MCG TABLET (FP) PO SCH (06:12)
[2021-07-01 07:43] LABS: HEMATOCRIT 21.6 % (32.4-45.2); MCHC 32.6 g/dl (32.0-36.0); MEAN PLT VOLUME 8.5 fl (7.5-11.1); PLATELET COUNT 431 10^3/uL (134-434); RBC 2.42 M/mm3 (3.60-5.2); RDW 15.9 % (11.6-15.6); WHITE BLOOD COUNT 10.2 K/mm3 (4.0-10.0)
[2021-07-01 08:54] LABS: CHLORIDE 103 mmol/L (98-107); SODIUM 133 mmol/L (136-145)
[2021-07-01 09:00] LABS: CALCIUM 8.2 mg/dL (8.5-10.1)
[2021-07-01 09:01] LABS: ALBUMIN 2.2 g/dl (3.4-5.0); ANION GAP 7 MMOL/L (8-16); BLOOD UREA NITROGEN 46.5 mg/dL (7-18); CO2 23 mmol/L (21-32); GLUCOSE,RANDOM 70 mg/dL (74-106)
[2021-07-01 09:04] LABS: CREATININE 1.8 mg/dL (0.55-1.3); SGOT/AST 10 U/L (15-37)
[2021-07-01 09:06] LABS: BILIRUBIN,TOTAL 0.3 mg/dL (0.2-1)
[2021-07-01 09:07] LABS: ALK PHOS 70 U/L (45-117); SGPT/ALT < 6 U/L (13-61)
[2021-07-01] MEDS ORDERED: MEROPENEM 500 MG VIAL (RESTRICTED TO ID) IVPB ONE ×2 (09:18→20:05)
[2021-07-01] MEDS ORDERED: DEXTROSE 5%-WATER 100 ML IVPB ONE ×2 (09:18→20:05)
[2021-07-01 09:20] LABS: ANISOCYTOSIS 0; HELMET CELLS 0; HOWELL-JOLLY BODIES 0; MACROCYTOSIS 0; OVALOCYTE 0; ROULEAU 0; SICKELED CELLS 0; TARGET CELLS 0; TEAR DROP CELLS 0; TOXIC GRANULATION 0
[2021-07-01] MEDS: MEROPENEM 500 MG in DEXTROSE 5%-WATER 100 ML IVPB SCH ×2 (09:35→20:11)
[2021-07-01] MEDS: DULoxetine HCL 20 MG CAPSULE.DR PO SCH (09:36)
[2021-07-01] MEDS: DOCUSATE SODIUM 100 MG CAPSULE (FP) PO SCH ×2 (09:36→21:29)
[2021-07-01] MEDS: APIXABAN 5 MG TABLET PO SCH ×2 (09:36→21:30)
[2021-07-01] MEDS: CARBIDOPA/LEVODOPA 25/100 TABLET (FP) PO SCH (09:37)
[2021-07-01] MEDS: RANOLAZINE E.R. 500 MG TABLET (FP) PO SCH ×2 (09:37→21:29)
[2021-07-01] MEDS: POLYETHYLENE GLYCOL (HEALTHYLAX) 3350 17 GM PACKET PO SCH ×2 (09:37→21:29)
[2021-07-01] MEDS: metoPROLOL SUCCINATE 25 MG TAB.SR.24H (FP) PO SCH (09:37)
[2021-07-01] MEDS ORDERED: FUROSEMIDE 40 MG/4 ML INJECTABLE VIAL IVPUSH ONE (09:46)
[2021-07-01 16:23] LABS: BASO % 1.1 % (0-2.0); EOS % 3.9 % (0-4.5); HEMATOCRIT 22.4 % (32.4-45.2); HEMOGLOBIN 7.1 GM/dL (10.7-15.3); LYMPH % 18.5 % (8-40); MCH 28.1 pg (25.7-33.7); MCHC 31.8 g/dl (32.0-36.0); MEAN CELL VOLUME 88.6 fl (80-96); MEAN PLT VOLUME 8.2 fl (7.5-11.1); MONO % 7.6 % (3.8-10.2); NEUT % 68.9 % (42.8-82.8); PLATELET COUNT 459 10^3/uL (134-434); RBC 2.53 M/mm3 (3.60-5.2); WHITE BLOOD COUNT 9.3 K/mm3 (4.0-10.0)
[2021-07-01] MEDS ORDERED: ATORVASTATIN CA 40 MG TABLET (FP) ONE (21:26)
[2021-07-01] MEDS: SENNOSIDES 8.6MG TABLET (FP) PO SCH (21:30)
[2021-07-01] MEDS: ATORVASTATIN CA 80 MG TABLET (FP) PO SCH (21:31)
[2021-07-02] MEDS: oxyCODONE HCL 5 MG TABLET PO PRN ×3 (00:12→22:45)
[2021-07-02] MEDS: ACETAMINOPHEN 325 MG TABLET (FP) PO PRN (03:00)
[2021-07-02] MEDS: LEVOTHYROXINE NA 100 MCG TABLET (FP) PO SCH (06:59)
[2021-07-02 07:36] LABS: CHLORIDE 104 mmol/L (98-107); SODIUM 134 mmol/L (136-145)
[2021-07-02 07:41] LABS: ANION GAP 7 MMOL/L (8-16); CALCIUM 8.8 mg/dL (8.5-10.1); CO2 23 mmol/L (21-32); GLUCOSE,RANDOM 106 mg/dL (74-106)
[2021-07-02 07:42] LABS: ALBUMIN 2.6 g/dl (3.4-5.0); BLOOD UREA NITROGEN 47.6 mg/dL (7-18); MAGNESIUM 2.7 mg/dL (1.8-2.4)
[2021-07-02 07:44] LABS: CREATININE 1.6 mg/dL (0.55-1.3); SGPT/ALT < 6 U/L (13-61)
[2021-07-02 07:45] LABS: BILIRUBIN,TOTAL 0.5 mg/dL (0.2-1); SGOT/AST 12 U/L (15-37); TOT PROT 6.8 g/dl (6.4-8.2)
[2021-07-02 07:46] LABS: ALK PHOS 85 U/L (45-117)
[2021-07-02 07:53] LABS: HEMATOCRIT 30.7 % (32.4-45.2); HEMOGLOBIN 10.1 GM/dL (10.7-15.3); MCH 28.7 pg (25.7-33.7); MCHC 32.9 g/dl (32.0-36.0); MEAN CELL VOLUME 87.4 fl (80-96); MEAN PLT VOLUME 8.7 fl (7.5-11.1); PLATELET COUNT 466 10^3/uL (134-434); RBC 3.51 M/mm3 (3.60-5.2); WHITE BLOOD COUNT 20.2 K/mm3 (4.0-10.0)
[2021-07-02] MEDS ORDERED: DEXTROSE 5%-WATER 100 ML IVPB ONE ×2 (08:05→21:25)
[2021-07-02] MEDS ORDERED: MEROPENEM 500 MG VIAL (RESTRICTED TO ID) IVPB ONE ×2 (08:05→21:25)
[2021-07-02] MEDS: MEROPENEM 500 MG in DEXTROSE 5%-WATER 100 ML IVPB SCH ×2 (08:11→22:46)
[2021-07-02 09:35] LABS: ANISOCYTOSIS 0; HELMET CELLS 0; HOWELL-JOLLY BODIES 0; MACROCYTOSIS 0; OVALOCYTE 0; ROULEAU 0; SICKELED CELLS 0; TARGET CELLS 0; TEAR DROP CELLS 0; TOXIC GRANULATION 0
[2021-07-02] MEDS: DULoxetine HCL 20 MG CAPSULE.DR PO SCH (09:50)
[2021-07-02] MEDS: CARBIDOPA/LEVODOPA 25/100 TABLET (FP) PO SCH (09:50)
[2021-07-02] MEDS: metoPROLOL SUCCINATE 25 MG TAB.SR.24H (FP) PO SCH (09:50)
[2021-07-02] MEDS: FUROSEMIDE 40 MG TABLET (FP) PO SCH (09:50)
[2021-07-02] MEDS: RANOLAZINE E.R. 500 MG TABLET (FP) PO SCH ×2 (09:50→22:46)
[2021-07-02] MEDS: DOCUSATE SODIUM 100 MG CAPSULE (FP) PO SCH ×2 (09:50→22:46)
[2021-07-02] MEDS: POLYETHYLENE GLYCOL (HEALTHYLAX) 3350 17 GM PACKET PO SCH ×2 (09:50→22:47)
[2021-07-02] MEDS ORDERED: HEPARIN NA (PORCINE) 5,000 UNITS/ML 1ML VIAL IVPUSH PRN ×2 (19:29)
[2021-07-02] MEDS ORDERED: ATORVASTATIN CA 40 MG TABLET (FP) ONE (21:25)
[2021-07-02] MEDS: HEPARIN INFUSION - 25,000 UNITS/500 ML INFUS.BAG IVPB SCH (22:43)
[2021-07-02] MEDS: ATORVASTATIN CA 80 MG TABLET (FP) PO SCH (22:46)
[2021-07-03 06:26] LABS: BASO % 0.2 % (0-2.0); EOS % 3.5 % (0-4.5); HEMATOCRIT 26.4 % (32.4-45.2); HEMOGLOBIN 8.7 GM/dL (10.7-15.3); LYMPH % 20.2 % (8-40); MCH 28.9 pg (25.7-33.7); MCHC 32.8 g/dl (32.0-36.0); MEAN CELL VOLUME 87.9 fl (80-96); MEAN PLT VOLUME 8.4 fl (7.5-11.1); MONO % 6.6 % (3.8-10.2); NEUT % 69.5 % (42.8-82.8); PLATELET COUNT 418 10^3/uL (134-434); RBC 3.01 M/mm3 (3.60-5.2); RDW 15.4 % (11.6-15.6)
[2021-07-03] MEDS: LEVOTHYROXINE NA 100 MCG TABLET (FP) PO SCH (07:04)
[2021-07-03 07:47] LABS: ALBUMIN 2.1 g/dl (3.4-5.0); ALK PHOS 93 U/L (45-117); ANION GAP 7 MMOL/L (8-16); BILIRUBIN,TOTAL 0.3 mg/dL (0.2-1); BLOOD UREA NITROGEN 47.7 mg/dL (7-18); CALCIUM 8.5 mg/dL (8.5-10.1); CHLORIDE 108 mmol/L (98-107); CO2 23 mmol/L (21-32); CREATININE 1.6 mg/dL (0.55-1.3); GLUCOSE,RANDOM 88 mg/dL (74-106); SGOT/AST 19 U/L (15-37); SGPT/ALT < 6 U/L (13-61); SODIUM 137 mmol/L (136-145); TOT PROT 5.7 g/dl (6.4-8.2)
[2021-07-03] MEDS ORDERED: DEXTROSE 5%-WATER 100 ML IVPB ONE ×2 (09:02→21:34)
[2021-07-03] MEDS ORDERED: MEROPENEM 500 MG VIAL (RESTRICTED TO ID) IVPB ONE ×2 (09:02→21:34)
[2021-07-03] MEDS: MEROPENEM 500 MG in DEXTROSE 5%-WATER 100 ML IVPB SCH ×2 (10:35→21:40)
[2021-07-03] MEDS: POLYETHYLENE GLYCOL (HEALTHYLAX) 3350 17 GM PACKET PO SCH ×2 (10:46→21:42)
[2021-07-03] MEDS: DOCUSATE SODIUM 100 MG CAPSULE (FP) PO SCH ×2 (10:46→21:42)
[2021-07-03] MEDS: FUROSEMIDE 40 MG TABLET (FP) PO SCH (10:46)
[2021-07-03] MEDS: RANOLAZINE E.R. 500 MG TABLET (FP) PO SCH ×2 (10:46→21:41)
[2021-07-03] MEDS: CARBIDOPA/LEVODOPA 25/100 TABLET (FP) PO SCH (10:46)
[2021-07-03] MEDS: DULoxetine HCL 20 MG CAPSULE.DR PO SCH (10:47)
[2021-07-03] MEDS ORDERED: oxyCODONE HCL 5 MG TABLET PO PRN (18:41)
[2021-07-03] MEDS ORDERED: ATORVASTATIN CA 40 MG TABLET (FP) ONE (21:34)
[2021-07-03] MEDS: ATORVASTATIN CA 80 MG TABLET (FP) PO SCH (21:42)
[2021-07-04] MEDS: LEVOTHYROXINE NA 100 MCG TABLET (FP) PO SCH (07:04)
[2021-07-04 07:07] LABS: BASO % 0.9 % (0-2.0); EOS % 4.4 % (0-4.5); HEMATOCRIT 29.3 % (32.4-45.2); HEMOGLOBIN 9.4 GM/dL (10.7-15.3); LYMPH % 23.4 % (8-40); MCH 28.7 pg (25.7-33.7); MCHC 32.2 g/dl (32.0-36.0); MEAN CELL VOLUME 89.1 fl (80-96); MEAN PLT VOLUME 8.8 fl (7.5-11.1); MONO % 7.9 % (3.8-10.2); NEUT % 63.4 % (42.8-82.8); PLATELET COUNT 448 10^3/uL (134-434); RBC 3.29 M/mm3 (3.60-5.2); RDW 15.6 % (11.6-15.6); WHITE BLOOD COUNT 9.6 K/mm3 (4.0-10.0)
[2021-07-04 07:28] LABS: ALBUMIN 2.1 g/dl (3.4-5.0); BLOOD UREA NITROGEN 43.6 mg/dL (7-18); CALCIUM 8.5 mg/dL (8.5-10.1)
[2021-07-04 07:31] LABS: CREATININE 1.3 mg/dL (0.55-1.3)
[2021-07-04 07:33] LABS: BILIRUBIN,TOTAL 0.5 mg/dL (0.2-1); TOT PROT 6.4 g/dl (6.4-8.2)
[2021-07-04] MEDS ORDERED: MEROPENEM 500 MG VIAL (RESTRICTED TO ID) IVPB ONE ×2 (10:09→20:01)
[2021-07-04] MEDS ORDERED: DEXTROSE 5%-WATER 100 ML IVPB ONE ×2 (10:10→20:02)
[2021-07-04] MEDS: MEROPENEM 500 MG in DEXTROSE 5%-WATER 100 ML IVPB SCH ×2 (10:14→20:05)
[2021-07-04] MEDS: DOCUSATE SODIUM 100 MG CAPSULE (FP) PO SCH ×2 (11:06→22:40)
[2021-07-04] MEDS: DULoxetine HCL 20 MG CAPSULE.DR PO SCH (11:06)
[2021-07-04] MEDS: POLYETHYLENE GLYCOL (HEALTHYLAX) 3350 17 GM PACKET PO SCH ×2 (11:06→22:39)
[2021-07-04] MEDS: RANOLAZINE E.R. 500 MG TABLET (FP) PO SCH ×2 (11:07→21:13)
[2021-07-04] MEDS: CARBIDOPA/LEVODOPA 25/100 TABLET (FP) PO SCH (11:07)
[2021-07-04] MEDS ORDERED: BUPIVACAINE HCL/PF 0.25% (2.5MG/ML) 10 ML VIAL ONE (11:54)
[2021-07-04] MEDS ORDERED: BUPIVACAINE LIPOSOME/PF (EXPAREL) 266 MG/20 ML VIAL ONE (11:56)
[2021-07-04] MEDS ORDERED: PROPOFOL 20 ML ONE (12:04)
[2021-07-04] MEDS ORDERED: MIDAZOLAM HCL 2 MG/2 ML SINGLE DOSE VIAL ONE ×2 (12:04)
[2021-07-04] MEDS ORDERED: ONDANSETRON 4 MG/2 ML VIAL IVPUSH PRN (13:39)
[2021-07-04] MEDS ORDERED: ALBUTEROL SO4 HFA INHALER IH PRN (13:56)
[2021-07-04] MEDS ORDERED: HEPARIN NA (PORCINE) 5,000 UNITS/ML 1ML VIAL IVPUSH PRN ×6 (13:56→19:14)
[2021-07-04] MEDS ORDERED: HEPARIN INFUSION - 25,000 UNITS/500 ML INFUS.BAG IVPB SCH (13:56)
[2021-07-04] MEDS ORDERED: APIXABAN 5 MG TABLET PO SCH ×2 (18:58→22:00)
[2021-07-04] MEDS: HEPARIN SOD,PORK IN 0.45% NACL 25,000 UNIT/500 ML INFUS.BAG IVPB SCH (19:35)
[2021-07-04] MEDS: oxyCODONE HCL 5 MG TABLET PO PRN (20:05)
[2021-07-04] MEDS: ATORVASTATIN CA 40 MG TABLET (FP) PO SCH (21:13)
[2021-07-04] MEDS: ACETAMINOPHEN 325 MG TABLET (FP) PO PRN (22:54)
[2021-07-05] MEDS: morphine SULFATE 4 MG/ML VIAL IVPUSH PRN ×5 (00:22→20:32)
[2021-07-05] MEDS: oxyCODONE HCL 5 MG TABLET PO PRN ×2 (01:55→13:15)
[2021-07-05] MEDS ORDERED: MELATONIN 5 MG TABLETS PO PRN (04:17)
[2021-07-05] MEDS ORDERED: MELATONIN 5 MG TABLETS PO ONE (04:36)
[2021-07-05] MEDS: LEVOTHYROXINE NA 100 MCG TABLET (FP) PO SCH (06:12)
[2021-07-05 07:10] LABS: HEMATOCRIT 27.9 % (32.4-45.2); HEMOGLOBIN 9.1 GM/dL (10.7-15.3); MCH 28.7 pg (25.7-33.7); MCHC 32.6 g/dl (32.0-36.0); MEAN PLT VOLUME 8.7 fl (7.5-11.1); PLATELET COUNT 543 10^3/uL (134-434); RBC 3.17 M/mm3 (3.60-5.2); WHITE BLOOD COUNT 10.4 K/mm3 (4.0-10.0)
[2021-07-05 08:39] LABS: ALBUMIN 2.1 g/dl (3.4-5.0); ANISOCYTOSIS 0; BLOOD UREA NITROGEN 35.4 mg/dL (7-18); CALCIUM 8.5 mg/dL (8.5-10.1); HELMET CELLS 0; HOWELL-JOLLY BODIES 0; MACROCYTOSIS 0; MAGNESIUM 2.7 mg/dL (1.8-2.4); OVALOCYTE 0; ROULEAU 0; SICKELED CELLS 0; TARGET CELLS 0; TEAR DROP CELLS 0; TOXIC GRANULATION 0
[2021-07-05 08:42] LABS: PHOSPHOROUS 3.2 mg/dL (2.5-4.9)
[2021-07-05 08:44] LABS: BILIRUBIN,TOTAL 0.4 mg/dL (0.2-1); TOT PROT 6.4 g/dl (6.4-8.2)
[2021-07-05] MEDS: HEPARIN INFUSION - 25,000 UNITS/500 ML INFUS.BAG IVPB SCH (08:52)
[2021-07-05] MEDS ORDERED: MEROPENEM 500 MG VIAL (RESTRICTED TO ID) IVPB ONE (09:50)
[2021-07-05] MEDS ORDERED: DEXTROSE 5%-WATER 100 ML IVPB ONE ×2 (09:50→20:30)
[2021-07-05] MEDS: DULoxetine HCL 20 MG CAPSULE.DR PO SCH (09:56)
[2021-07-05] MEDS: CARBIDOPA/LEVODOPA 25/100 TABLET (FP) PO SCH (09:57)
[2021-07-05] MEDS: MEROPENEM 500 MG in DEXTROSE 5%-WATER 100 ML IVPB SCH (09:57)
[2021-07-05] MEDS: DOCUSATE SODIUM 100 MG CAPSULE (FP) PO SCH ×2 (09:57→21:04)
[2021-07-05] MEDS: RANOLAZINE E.R. 500 MG TABLET (FP) PO SCH ×2 (09:58→21:05)
[2021-07-05] MEDS: POLYETHYLENE GLYCOL (HEALTHYLAX) 3350 17 GM PACKET PO SCH ×2 (09:58→21:05)
[2021-07-05] MEDS: metoPROLOL SUCCINATE 25 MG TAB.SR.24H (FP) PO SCH (13:14)
[2021-07-05] MEDS ORDERED: HYDROmorphone HCL CARPU-JECT 2 MG/1 ML DISP.SYRIN IVPUSH SCH (16:45)
[2021-07-05] MEDS ORDERED: HYDROmorphone HCL CARPU-JECT 2 MG/1 ML DISP.SYRIN IVPUSH PRN (16:59)
[2021-07-05] MEDS ORDERED: MEROPENEM 1 GM VIAL (RESTRICTED TO ID) IVPB ONE (20:30)
[2021-07-05] MEDS: MEROPENEM 1 GM in DEXTROSE 5%-WATER 100 ML IVPB SCH (20:35)
[2021-07-05] MEDS: ATORVASTATIN CA 40 MG TABLET (FP) PO SCH (21:04)
[2021-07-05] MEDS: MELATONIN 5 MG TABLETS PO SCH (21:07)
[2021-07-06] MEDS: HEPARIN SOD,PORK IN 0.45% NACL 25,000 UNIT/500 ML INFUS.BAG IVPB SCH (00:17)
[2021-07-06] MEDS: morphine SULFATE 4 MG/ML VIAL IVPUSH PRN ×5 (00:27→20:44)
[2021-07-06] MEDS: LEVOTHYROXINE NA 100 MCG TABLET (FP) PO SCH (06:00)
[2021-07-06 06:57] LABS: BASO % 1.5 % (0-2.0); EOS % 3.4 % (0-4.5); HEMATOCRIT 23.5 % (32.4-45.2); HEMOGLOBIN 7.9 GM/dL (10.7-15.3); LYMPH % 27.1 % (8-40); MCH 29.7 pg (25.7-33.7); MCHC 33.7 g/dl (32.0-36.0); MEAN PLT VOLUME 8.8 fl (7.5-11.1); MONO % 9.4 % (3.8-10.2); NEUT % 58.6 % (42.8-82.8); PLATELET COUNT 430 10^3/uL (134-434); RBC 2.66 M/mm3 (3.60-5.2); RDW 15.8 % (11.6-15.6)
[2021-07-06 07:42] LABS: ALBUMIN 2.1 g/dl (3.4-5.0); ALK PHOS 72 U/L (45-117); ANION GAP 5 MMOL/L (8-16); BILIRUBIN,TOTAL 0.3 mg/dL (0.2-1); BLOOD UREA NITROGEN 33.9 mg/dL (7-18); CALCIUM 8.4 mg/dL (8.5-10.1); CHLORIDE 109 mmol/L (98-107); CO2 26 mmol/L (21-32); CREATININE 0.9 mg/dL (0.55-1.3); GLUCOSE,RANDOM 118 mg/dL (74-106); SGOT/AST 14 U/L (15-37); SGPT/ALT < 6 U/L (13-61); SODIUM 141 mmol/L (136-145); TOT PROT 5.6 g/dl (6.4-8.2)
[2021-07-06] MEDS ORDERED: DEXTROSE 5%-WATER 100 ML IVPB ONE ×2 (08:25→20:35)
[2021-07-06] MEDS ORDERED: MEROPENEM 1 GM VIAL (RESTRICTED TO ID) IVPB ONE ×3 (08:25→20:35)
[2021-07-06] MEDS: MEROPENEM 1 GM in DEXTROSE 5%-WATER 100 ML IVPB SCH ×2 (09:49→20:45)
[2021-07-06] MEDS: RANOLAZINE E.R. 500 MG TABLET (FP) PO SCH ×2 (10:02→21:00)
[2021-07-06] MEDS: DULoxetine HCL 20 MG CAPSULE.DR PO SCH (10:02)
[2021-07-06] MEDS: CARBIDOPA/LEVODOPA 25/100 TABLET (FP) PO SCH (10:02)
[2021-07-06] MEDS: DOCUSATE SODIUM 100 MG CAPSULE (FP) PO SCH ×2 (10:02→21:01)
[2021-07-06] MEDS: metoPROLOL SUCCINATE 25 MG TAB.SR.24H (FP) PO SCH (10:02)
[2021-07-06] MEDS: POLYETHYLENE GLYCOL (HEALTHYLAX) 3350 17 GM PACKET PO SCH ×2 (10:02→21:01)
[2021-07-06] MEDS: FUROSEMIDE 40 MG TABLET (FP) PO SCH (10:02)
[2021-07-06] MEDS: APIXABAN 2.5 MG TABLET PO SCH ×2 (13:45→20:59)
[2021-07-06] MEDS: ATORVASTATIN CA 40 MG TABLET (FP) PO SCH (21:00)
[2021-07-06] MEDS: MELATONIN 5 MG TABLETS PO SCH (21:01)
[2021-07-07] MEDS: morphine SULFATE 4 MG/ML VIAL IVPUSH PRN ×5 (01:52→23:57)
[2021-07-07] MEDS: LEVOTHYROXINE NA 100 MCG TABLET (FP) PO SCH (06:03)
[2021-07-07 06:55] LABS: HEMATOCRIT 25.1 % (32.4-45.2); MCH 28.6 pg (25.7-33.7); MEAN CELL VOLUME 89.2 fl (80-96); MEAN PLT VOLUME 8.4 fl (7.5-11.1); PLATELET COUNT 435 10^3/uL (134-434); RBC 2.82 M/mm3 (3.60-5.2); RDW 15.7 % (11.6-15.6); WHITE BLOOD COUNT 8.6 K/mm3 (4.0-10.0)
[2021-07-07 07:04] LABS: CHLORIDE 106 mmol/L (98-107); SODIUM 136 mmol/L (136-145)
[2021-07-07 07:06] LABS: ALBUMIN 2.3 g/dl (3.4-5.0); ANION GAP 3 MMOL/L (8-16); BLOOD UREA NITROGEN 37.3 mg/dL (7-18); CALCIUM 8.8 mg/dL (8.5-10.1); CO2 28 mmol/L (21-32); GLUCOSE,RANDOM 82 mg/dL (74-106)
[2021-07-07 07:09] LABS: CREATININE 1.1 mg/dL (0.55-1.3); SGOT/AST 12 U/L (15-37)
[2021-07-07 07:10] LABS: SGPT/ALT < 6 U/L (13-61)
[2021-07-07 07:11] LABS: BILIRUBIN,TOTAL 0.6 mg/dL (0.2-1); TOT PROT 6.1 g/dl (6.4-8.2)
[2021-07-07 07:12] LABS: ALK PHOS 68 U/L (45-117)
[2021-07-07] MEDS ORDERED: MEROPENEM 1 GM VIAL (RESTRICTED TO ID) IVPB ONE (09:29)
[2021-07-07] MEDS ORDERED: DEXTROSE 5%-WATER 100 ML IVPB ONE (09:29)
[2021-07-07] MEDS: POLYETHYLENE GLYCOL (HEALTHYLAX) 3350 17 GM PACKET PO SCH ×2 (09:34→21:29)
[2021-07-07] MEDS: DOCUSATE SODIUM 100 MG CAPSULE (FP) PO SCH ×2 (09:34→21:28)
[2021-07-07] MEDS: MEROPENEM 1 GM in DEXTROSE 5%-WATER 100 ML IVPB SCH (09:34)
[2021-07-07] MEDS: DULoxetine HCL 20 MG CAPSULE.DR PO SCH (09:34)
[2021-07-07] MEDS: APIXABAN 2.5 MG TABLET PO SCH ×2 (09:34→21:29)
[2021-07-07] MEDS: CARBIDOPA/LEVODOPA 25/100 TABLET (FP) PO SCH (09:34)
[2021-07-07] MEDS: RANOLAZINE E.R. 500 MG TABLET (FP) PO SCH ×2 (09:34→21:28)
[2021-07-07] MEDS: metoPROLOL SUCCINATE 25 MG TAB.SR.24H (FP) PO SCH ×2 (10:30→19:19)
[2021-07-07] MEDS: FUROSEMIDE 40 MG TABLET (FP) PO SCH (11:46)
[2021-07-07] MEDS: MEROPENEM 500 MG in DEXTROSE 5%-WATER 100 ML IVPB SCH (19:18)
[2021-07-07] MEDS: MELATONIN 5 MG TABLETS PO SCH (21:28)
[2021-07-07] MEDS: ATORVASTATIN CA 40 MG TABLET (FP) PO SCH (21:29)
[2021-07-08] MEDS: LEVOTHYROXINE NA 100 MCG TABLET (FP) PO SCH (06:30)
[2021-07-08] MEDS: morphine SULFATE 4 MG/ML VIAL IVPUSH PRN ×3 (06:35→21:14)
[2021-07-08] MEDS ORDERED: SODIUM CHLORIDE 500 ML IV STA (08:22)
[2021-07-08 09:01] LABS: CHLORIDE 106 mmol/L (98-107); SODIUM 135 mmol/L (136-145)
[2021-07-08 09:07] LABS: CALCIUM 8.9 mg/dL (8.5-10.1)
[2021-07-08 09:08] LABS: ALBUMIN 2.3 g/dl (3.4-5.0); ANION GAP 4 MMOL/L (8-16); BLOOD UREA NITROGEN 40.5 mg/dL (7-18); CO2 26 mmol/L (21-32); GLUCOSE,RANDOM 82 mg/dL (74-106)
[2021-07-08 09:10] LABS: CREATININE 1.2 mg/dL (0.55-1.3); SGPT/ALT < 6 U/L (13-61)
[2021-07-08 09:11] LABS: BILIRUBIN,TOTAL 0.4 mg/dL (0.2-1); SGOT/AST 13 U/L (15-37)
[2021-07-08 09:12] LABS: ALK PHOS 71 U/L (45-117)
[2021-07-08] MEDS: DOCUSATE SODIUM 100 MG CAPSULE (FP) PO SCH ×2 (09:30→21:16)
[2021-07-08] MEDS: RANOLAZINE E.R. 500 MG TABLET (FP) PO SCH ×2 (09:30→21:15)
[2021-07-08] MEDS: CARBIDOPA/LEVODOPA 25/100 TABLET (FP) PO SCH (09:30)
[2021-07-08] MEDS: POLYETHYLENE GLYCOL (HEALTHYLAX) 3350 17 GM PACKET PO SCH ×2 (09:30→21:16)
[2021-07-08] MEDS: APIXABAN 2.5 MG TABLET PO SCH ×2 (09:30→21:15)
[2021-07-08] MEDS: FUROSEMIDE 40 MG TABLET (FP) PO SCH (09:30)
[2021-07-08] MEDS ORDERED: morphine CARPU-JECT 2 MG/1 ML DISP.SYRIN IVPB ONE (09:32)
[2021-07-08] MEDS ORDERED: SODIUM ZIRCONIUM CYCLOSILICATE (LOKELMA) 5 GM PACKET PO SCH (10:00)
[2021-07-08] MEDS ORDERED: DEXTROSE 50%-WATER 25 GM/50 ML DISP.SYRIN IVPUSH ONE (10:00)
[2021-07-08] MEDS ORDERED: CALCIUM GLUCONATE 10% - 1,000 MG/10 ML VIAL IVPUSH ONE (10:00)
[2021-07-08] MEDS ORDERED: INSULIN REGULAR HUMAN 100 UNITS/ML *VIAL IVPUSH ONE (10:15)
[2021-07-08] MEDS ORDERED: DEXTROSE 50%-WATER 25 GM/50 ML DISP.SYRIN ONE ×2 (10:40→16:20)
[2021-07-08 12:31] LABS: HEMATOCRIT 23.4 % (32.4-45.2); HEMOGLOBIN 7.5 GM/dL (10.7-15.3); MCH 28.8 pg (25.7-33.7); MCHC 32.2 g/dl (32.0-36.0); MEAN CELL VOLUME 89.3 fl (80-96); MEAN PLT VOLUME 8.2 fl (7.5-11.1); PLATELET COUNT 373 10^3/uL (134-434); RBC 2.62 M/mm3 (3.60-5.2); RDW 15.9 % (11.6-15.6); WHITE BLOOD COUNT 8.4 K/mm3 (4.0-10.0)
[2021-07-08] MEDS: COLLAGENASE CLOSTRIDIUM HIST. 30 GRAMS TUBE TP SCH (15:10)
[2021-07-08] MEDS ORDERED: DEXTROSE 50%-WATER - 25 GM/50 ML VIAL IVPUSH ONE (16:24)
[2021-07-08] MEDS: MELATONIN 5 MG TABLETS PO SCH (21:15)
[2021-07-08] MEDS: ATORVASTATIN CA 40 MG TABLET (FP) PO SCH (21:16)
[2021-07-09] MEDS: morphine SULFATE 4 MG/ML VIAL IVPUSH PRN ×4 (06:33→20:32)
[2021-07-09] MEDS: LEVOTHYROXINE NA 100 MCG TABLET (FP) PO SCH (06:34)
[2021-07-09 09:01] LABS: BASO % 0.9 % (0-2.0); EOS % 5.8 % (0-4.5); HEMATOCRIT 22.6 % (32.4-45.2); HEMOGLOBIN 7.3 GM/dL (10.7-15.3); LYMPH % 29.3 % (8-40); MCH 29.2 pg (25.7-33.7); MCHC 32.3 g/dl (32.0-36.0); MEAN CELL VOLUME 90.4 fl (80-96); MEAN PLT VOLUME 9.1 fl (7.5-11.1); MONO % 9.3 % (3.8-10.2); NEUT % 54.7 % (42.8-82.8); PLATELET COUNT 364 10^3/uL (134-434); RDW 16.1 % (11.6-15.6); WHITE BLOOD COUNT 8.3 K/mm3 (4.0-10.0)
[2021-07-09 09:06] LABS: CHLORIDE 106 mmol/L (98-107); SODIUM 139 mmol/L (136-145)
[2021-07-09 09:09] LABS: ALBUMIN 2.1 g/dl (3.4-5.0); BLOOD UREA NITROGEN 40.9 mg/dL (7-18); GLUCOSE,RANDOM 72 mg/dL (74-106)
[2021-07-09 09:10] LABS: ANION GAP 4 MMOL/L (8-16); CO2 29 mmol/L (21-32)
[2021-07-09 09:13] LABS: CREATININE 1.1 mg/dL (0.55-1.3); SGOT/AST 12 U/L (15-37); SGPT/ALT < 6 U/L (13-61)
[2021-07-09 09:14] LABS: BILIRUBIN,TOTAL 0.5 mg/dL (0.2-1)
[2021-07-09 09:15] LABS: TOT PROT 5.7 g/dl (6.4-8.2)
[2021-07-09 09:16] LABS: ALK PHOS 71 U/L (45-117)
[2021-07-09] MEDS: COLLAGENASE CLOSTRIDIUM HIST. 30 GRAMS TUBE TP SCH (11:00)
[2021-07-09] MEDS: RANOLAZINE E.R. 500 MG TABLET (FP) PO SCH ×2 (11:01→21:27)
[2021-07-09] MEDS: APIXABAN 2.5 MG TABLET PO SCH ×2 (11:01→21:27)
[2021-07-09] MEDS: FUROSEMIDE 40 MG TABLET (FP) PO SCH (11:02)
[2021-07-09] MEDS: DOCUSATE SODIUM 100 MG CAPSULE (FP) PO SCH ×2 (11:02→21:27)
[2021-07-09] MEDS: CARBIDOPA/LEVODOPA 25/100 TABLET (FP) PO SCH (11:02)
[2021-07-09] MEDS: metoPROLOL SUCCINATE 25 MG TAB.SR.24H (FP) PO SCH (11:02)
[2021-07-09] MEDS: POLYETHYLENE GLYCOL (HEALTHYLAX) 3350 17 GM PACKET PO SCH ×2 (11:03→21:28)
[2021-07-09] MEDS: SODIUM ZIRCONIUM CYCLOSILICATE (LOKELMA) 5 GM PACKET PO SCH (11:03)
[2021-07-09 11:44] LABS: IRON SERUM 22 ug/dL (50-175)
[2021-07-09 11:45] LABS: TOTAL IRON BINDING CAPACITY 128 ug/dL (250-450)
[2021-07-09] MEDS: ACETAMINOPHEN 325 MG TABLET (FP) PO PRN (12:20)
[2021-07-09] MEDS ORDERED: SODIUM BICARBONATE 8.4% 50 MEQ/50 ML VIAL IVPUSH ONE (12:22)
[2021-07-09] MEDS ORDERED: FUROSEMIDE 40 MG/4 ML INJECTABLE VIAL IVPUSH ONE (19:00)
[2021-07-09] MEDS: MELATONIN 5 MG TABLETS PO SCH (21:27)
[2021-07-09] MEDS: ATORVASTATIN CA 40 MG TABLET (FP) PO SCH (21:27)
[2021-07-10 02:30] LABS: EOS % 5.3 % (0-4.5); HEMATOCRIT 27.9 % (32.4-45.2); HEMOGLOBIN 9.5 GM/dL (10.7-15.3); MCH 30.3 pg (25.7-33.7); MCHC 34.1 g/dl (32.0-36.0); MEAN CELL VOLUME 88.8 fl (80-96); MEAN PLT VOLUME 8.1 fl (7.5-11.1); MONO % 7.3 % (3.8-10.2); NEUT % 61.4 % (42.8-82.8); PLATELET COUNT 374 10^3/uL (134-434); RBC 3.14 M/mm3 (3.60-5.2); RDW 15.6 % (11.6-15.6); WHITE BLOOD COUNT 8.1 K/mm3 (4.0-10.0)
[2021-07-10 02:41] LABS: CHLORIDE 105 mmol/L (98-107); SODIUM 140 mmol/L (136-145)
[2021-07-10 02:43] LABS: CALCIUM 8.9 mg/dL (8.5-10.1)
[2021-07-10 02:44] LABS: ALBUMIN 2.3 g/dl (3.4-5.0); BLOOD UREA NITROGEN 39.6 mg/dL (7-18); GLUCOSE,RANDOM 92 mg/dL (74-106); MAGNESIUM 2.6 mg/dL (1.8-2.4)
[2021-07-10 02:47] LABS: PHOSPHOROUS 4.6 mg/dL (2.5-4.9); SGOT/AST 12 U/L (15-37)
[2021-07-10 02:48] LABS: BILIRUBIN,TOTAL 0.6 mg/dL (0.2-1); TOT PROT 5.9 g/dl (6.4-8.2)
[2021-07-10 02:50] LABS: ALK PHOS 71 U/L (45-117)
[2021-07-10 02:54] LABS: ANION GAP 5 MMOL/L (8-16); CO2 31 mmol/L (21-32); SGPT/ALT < 6 U/L (13-61)
[2021-07-10] MEDS: morphine SULFATE 4 MG/ML VIAL IVPUSH PRN ×2 (06:35→13:28)
[2021-07-10] MEDS: LEVOTHYROXINE NA 100 MCG TABLET (FP) PO SCH (06:35)
[2021-07-10 08:49] LABS: HEMATOCRIT 27.3 % (32.4-45.2); MCH 29.6 pg (25.7-33.7); MEAN CELL VOLUME 89.8 fl (80-96); MEAN PLT VOLUME 9.4 fl (7.5-11.1); PLATELET COUNT 337 10^3/uL (134-434); RBC 3.04 M/mm3 (3.60-5.2); RDW 15.7 % (11.6-15.6); WHITE BLOOD COUNT 8.4 K/mm3 (4.0-10.0)
[2021-07-10] MEDS: metoPROLOL SUCCINATE 25 MG TAB.SR.24H (FP) PO SCH (10:38)
[2021-07-10] MEDS: DULoxetine HCL 20 MG CAPSULE.DR PO SCH (10:38)
[2021-07-10] MEDS: RANOLAZINE E.R. 500 MG TABLET (FP) PO SCH ×2 (10:38→21:46)
[2021-07-10] MEDS: FUROSEMIDE 40 MG TABLET (FP) PO SCH (10:38)
[2021-07-10] MEDS: APIXABAN 2.5 MG TABLET PO SCH ×2 (10:38→21:46)
[2021-07-10] MEDS: DOCUSATE SODIUM 100 MG CAPSULE (FP) PO SCH ×2 (10:38→21:45)
[2021-07-10] MEDS: POLYETHYLENE GLYCOL (HEALTHYLAX) 3350 17 GM PACKET PO SCH ×2 (10:39→21:45)
[2021-07-10] MEDS: COLLAGENASE CLOSTRIDIUM HIST. 30 GRAMS TUBE TP SCH (10:40)
[2021-07-10] MEDS: CARBIDOPA/LEVODOPA 25/100 TABLET (FP) PO SCH (10:55)
[2021-07-10] MEDS: SODIUM ZIRCONIUM CYCLOSILICATE (LOKELMA) 5 GM PACKET PO SCH (13:29)
[2021-07-10] MEDS ORDERED: TAMSULOSIN HCL 0.4 MG CAP PO SCH (13:33)
[2021-07-10] MEDS ORDERED: morphine SULFATE 4 MG/ML VIAL IVPUSH ONE (21:23)
[2021-07-10] MEDS: ATORVASTATIN CA 40 MG TABLET (FP) PO SCH (21:46)
[2021-07-10] MEDS: MELATONIN 5 MG TABLETS PO SCH (21:46)
[2021-07-11] MEDS ORDERED: morphine SULFATE 4 MG/ML VIAL IVPUSH ONE (05:29)
[2021-07-11] MEDS: LEVOTHYROXINE NA 100 MCG TABLET (FP) PO SCH (06:50)
[2021-07-11 07:45] LABS: BASO % 1.2 % (0-2.0); EOS % 4.9 % (0-4.5); HEMOGLOBIN 8.8 GM/dL (10.7-15.3); LYMPH % 27.5 % (8-40); MCH 29.4 pg (25.7-33.7); MCHC 32.7 g/dl (32.0-36.0); MEAN PLT VOLUME 9.8 fl (7.5-11.1); MONO % 7.9 % (3.8-10.2); NEUT % 58.5 % (42.8-82.8); PLATELET COUNT 323 10^3/uL (134-434); RDW 15.8 % (11.6-15.6); WHITE BLOOD COUNT 7.6 K/mm3 (4.0-10.0)
[2021-07-11 07:58] LABS: CHLORIDE 102 mmol/L (98-107); SODIUM 138 mmol/L (136-145)
[2021-07-11 08:06] LABS: ALBUMIN 2.2 g/dl (3.4-5.0); ANION GAP 5 MMOL/L (8-16); CO2 31 mmol/L (21-32); GLUCOSE,RANDOM 84 mg/dL (74-106); SGPT/ALT < 6 U/L (13-61)
[2021-07-11 08:08] LABS: BILIRUBIN,TOTAL 0.4 mg/dL (0.2-1); TOT PROT 5.7 g/dl (6.4-8.2)
[2021-07-11 08:09] LABS: ALK PHOS 64 U/L (45-117); CREATININE 0.9 mg/dL (0.55-1.3); SGOT/AST 15 U/L (15-37)
[2021-07-11] MEDS: DOCUSATE SODIUM 100 MG CAPSULE (FP) PO SCH (09:12)
[2021-07-11] MEDS: COLLAGENASE CLOSTRIDIUM HIST. 30 GRAMS TUBE TP SCH (09:12)
[2021-07-11] MEDS: metoPROLOL SUCCINATE 25 MG TAB.SR.24H (FP) PO SCH (09:12)
[2021-07-11] MEDS: DULoxetine HCL 20 MG CAPSULE.DR PO SCH (09:12)
[2021-07-11] MEDS: FUROSEMIDE 40 MG TABLET (FP) PO SCH (09:12)
[2021-07-11] MEDS: APIXABAN 2.5 MG TABLET PO SCH (09:12)
[2021-07-11] MEDS: CARBIDOPA/LEVODOPA 25/100 TABLET (FP) PO SCH (09:12)
[2021-07-11] MEDS: RANOLAZINE E.R. 500 MG TABLET (FP) PO SCH (09:13)
[2021-07-11] MEDS: SODIUM ZIRCONIUM CYCLOSILICATE (LOKELMA) 5 GM PACKET PO SCH (09:13)
[2021-07-11] MEDS: POLYETHYLENE GLYCOL (HEALTHYLAX) 3350 17 GM PACKET PO SCH (09:14)
[2021-07-11 09:18] VITALS: BP 146/71; PULSE 74; TEMP 98.2
[2021-07-11] MEDS ORDERED: oxyCODONE HCL 5 MG TABLET PO PRN (09:36)
[2021-07-11] MEDS ORDERED: ACETAMINOPHEN 325 MG TABLET (FP) PO PRN (09:37)
[2021-07-11] MEDS ORDERED: TAMSULOSIN HCL 0.4 MG CAP PO SCH (10:54)
== END 2021-07-11 12:56 | disposition home or self-care (01) | DRG 305 ==
LOC: JASU-SURG 04:16 → J2C 13:19 → EDSTATUS 13:38 → J7W 15:37 → J4S 06-30 13:31
PROVIDERS: ADMIT Surgery Vascular Surgery
PROC: 0YQJ0ZZ Repair Left Lower Leg, Open Approach (ICD-10-PCS; 2021-07-04)
PROC: 0Y6D0Z2 Detachment at Left Upper Leg, Mid, Open Approach (ICD-10-PCS; 2021-07-04)
PROC: 0KBT0ZZ Excision of Left Lower Leg Muscle, Open Approach (ICD-10-PCS; principal; 2021-07-04 13:00)
DX: T87.44 Infection of amputation stump, left lower extremity (principal); T81.44XA Sepsis following a procedure, initial encounter; A41.89 Other specified sepsis; I13.0 Hypertensive heart and chronic kidney disease with heart failure and stage 1 through stage 4 chronic kidney disease, or unspecified chronic kidney disease; E11.22 Type 2 diabetes mellitus with diabetic chronic kidney disease; N17.9 Acute kidney failure, unspecified; N18.30 Chronic kidney disease, stage 3 unspecified; I50.32 Chronic diastolic (congestive) heart failure; G20 Parkinson's disease; D62 Acute posthemorrhagic anemia; D63.1 Anemia in chronic kidney disease; J44.9 Chronic obstructive pulmonary disease, unspecified; E78.5 Hyperlipidemia, unspecified; I48.91 Unspecified atrial fibrillation; B96.1 Klebsiella pneumoniae [K. pneumoniae] as the cause of diseases classified elsewhere; E03.9 Hypothyroidism, unspecified; D72.829 Elevated white blood cell count, unspecified; E11.52 Type 2 diabetes mellitus with diabetic peripheral angiopathy with gangrene; I96 Gangrene, not elsewhere classified; E11.51 Type 2 diabetes mellitus with diabetic peripheral angiopathy without gangrene; I25.10 Atherosclerotic heart disease of native coronary artery without angina pectoris; N39.0 Urinary tract infection, site not specified; F41.8 Other specified anxiety disorders; E11.622 Type 2 diabetes mellitus with other skin ulcer; L97.828 Non-pressure chronic ulcer of other part of left lower leg with other specified severity; I25.5 Ischemic cardiomyopathy; Y83.8 Other surgical procedures as the cause of abnormal reaction of the patient, or of later complication, without mention of misadventure at the time of the procedure; E11.65 Type 2 diabetes mellitus with hyperglycemia; E88.81 Metabolic syndrome and other insulin resistance; Z86.73 Personal history of transient ischemic attack (TIA), and cerebral infarction without residual deficits; E87.5 Hyperkalemia; Z93.0 Tracheostomy status; K59.00 Constipation, unspecified; R33.9 Retention of urine, unspecified; Z95.1 Presence of aortocoronary bypass graft; Z89.512 Acquired absence of left leg below knee
CPT/HCPCS: 36415; 36430; 36511; 71045-TC-FY; 75635-TC; 76775-TC; 80053; 81003; 82436; 82570; 82728; 82962; 83540; 83550; 83735; 83880; 84100; 84132; 84133; 84156; 84300; 84439; 84443; 84484; 85025; 85027; 85730; 86850; 86900; 86901; 86922; 87040; 87086; 87186; 88305-TC; 88311-TC; 93005; 93010; 94010; 94760; 97161-GP; C9803-CS; G0480; J1644; P9038; P9058; Q9967; U0003; U0005

== ENCOUNTER 2021-09-20 19:12 | Inpatient (IN) | payer OTHER ==
[2021-09-20] MEDS ORDERED: ACETAMINOPHEN 1000 MG/100 ML BAG IVPB ONE (20:27)
[2021-09-20] MEDS ORDERED: ACETAMINOPHEN INJECTION 100 ML IVPB ONE (20:33)
[2021-09-20 21:00] LABS: BASO % 0.5 % (0-2.0); EOS % 0.4 % (0-4.5); HEMATOCRIT 32.2 % (32.4-45.2); HEMOGLOBIN 10.1 GM/dL (10.7-15.3); LYMPH % 7.4 % (8-40); MCH 28.6 pg (25.7-33.7); MCHC 31.5 g/dl (32.0-36.0); MEAN CELL VOLUME 90.8 fl (80-96); MEAN PLT VOLUME 9.5 fl (7.5-11.1); NEUT % 87.7 % (42.8-82.8); PLATELET COUNT 265 10^3/uL (134-434); RBC 3.55 M/mm3 (3.60-5.2); RDW 15.9 % (11.6-15.6); WHITE BLOOD COUNT 16.2 K/mm3 (4.0-10.0)
[2021-09-20 21:07] LABS: INR 1.12 (0.83-1.09); PROTHROMBIN TIME (PATIENT) 12.9 SEC (9.7-13.0)
[2021-09-20 21:09] LABS: ACTIVATED PTT 33.1 SECONDS (25.2-36.5)
[2021-09-20 21:21] LABS: ALBUMIN 3.2 g/dl (3.4-5.0); BLOOD UREA NITROGEN 38.3 mg/dL (7-18); CALCIUM 9.4 mg/dL (8.5-10.1)
[2021-09-20 21:24] LABS: CREATININE 1.1 mg/dL (0.55-1.3)
[2021-09-20 21:26] LABS: BILIRUBIN,TOTAL 0.4 mg/dL (0.2-1); TOT PROT 6.9 g/dl (6.4-8.2)
[2021-09-20 21:29] LABS: LACTIC ACID 3.5 mmol/L (0.4-2.0)
[2021-09-20] MEDS ORDERED: SODIUM CHLORIDE 0.9% 1000 ML INFUS.BAG IV ONE (21:33)
[2021-09-21 06:39] VITALS: BMI 23.6
[2021-09-21 08:02] LABS: BASO % 0.6 % (0-2.0); EOS % 0.1 % (0-4.5); HEMATOCRIT 23.9 % (32.4-45.2); HEMOGLOBIN 7.7 GM/dL (10.7-15.3); LYMPH % 12.6 % (8-40); MCH 29.3 pg (25.7-33.7); MCHC 32.3 g/dl (32.0-36.0); MEAN CELL VOLUME 90.7 fl (80-96); MEAN PLT VOLUME 9.4 fl (7.5-11.1); MONO % 6.5 % (3.8-10.2); NEUT % 80.2 % (42.8-82.8); PLATELET COUNT 222 10^3/uL (134-434); RBC 2.63 M/mm3 (3.60-5.2); RDW 15.9 % (11.6-15.6); WHITE BLOOD COUNT 10.5 K/mm3 (4.0-10.0)
[2021-09-21 08:25] LABS: CALCIUM 8.5 mg/dL (8.5-10.1)
[2021-09-21 08:28] LABS: TOT PROT 5.8 g/dl (6.4-8.2)
[2021-09-21 08:30] LABS: ALBUMIN 2.6 g/dl (3.4-5.0)
[2021-09-21 08:32] LABS: BILIRUBIN,TOTAL 0.5 mg/dL (0.2-1)
[2021-09-21 08:33] LABS: BLOOD UREA NITROGEN 36.2 mg/dL (7-18); MAGNESIUM 2.3 mg/dL (1.8-2.4); PHOSPHOROUS 5.3 mg/dL (2.5-4.9)
[2021-09-21] MEDS: ACETAMINOPHEN 1000 MG/100 ML BAG IVPB PRN ×2 (14:50→20:00)
[2021-09-21] MEDS ORDERED: ATORVASTATIN CA 80 MG TABLET (FP) PO ONE (14:55)
[2021-09-21] MEDS: metoPROLOL SUCCINATE 25 MG TAB.SR.24H (FP) PO SCH (15:44)
[2021-09-21] MEDS: INSULIN (LEVEMIR) 100 UNITS/ML UNITS SQ SCH ×2 (15:49→23:00)
[2021-09-21] MEDS: INSULIN SLIDING SCALE (NOVOLOG) 1 VIAL SQ SCH ×2 (18:04→22:00)
[2021-09-21] MEDS: HEPARIN NA (PORCINE) 5,000 UNITS/ML 1ML VIAL SQ SCH (22:57)
[2021-09-21] MEDS: RANOLAZINE E.R. 500 MG TABLET (FP) PO SCH (22:57)
[2021-09-21 23:35] LABS: BASO % 0.9 % (0-2.0); EOS % 2.3 % (0-4.5); HEMATOCRIT 25.4 % (32.4-45.2); HEMOGLOBIN 8.5 GM/dL (10.7-15.3); LYMPH % 24.6 % (8-40); MCH 29.9 pg (25.7-33.7); MCHC 33.4 g/dl (32.0-36.0); MEAN CELL VOLUME 89.6 fl (80-96); MEAN PLT VOLUME 9.2 fl (7.5-11.1); MONO % 8.6 % (3.8-10.2); NEUT % 63.6 % (42.8-82.8); PLATELET COUNT 177 10^3/uL (134-434); RBC 2.83 M/mm3 (3.60-5.2); RDW 15.1 % (11.6-15.6); WHITE BLOOD COUNT 9.1 K/mm3 (4.0-10.0)
[2021-09-22] MEDS: ACETAMINOPHEN 1000 MG/100 ML BAG IVPB PRN ×2 (02:12→07:12)
[2021-09-22] MEDS: HEPARIN NA (PORCINE) 5,000 UNITS/ML 1ML VIAL SQ SCH ×3 (05:34→21:28)
[2021-09-22] MEDS: INSULIN SLIDING SCALE (NOVOLOG) 1 VIAL SQ SCH ×4 (05:59→21:29)
[2021-09-22 08:36] LABS: CALCIUM 8.2 mg/dL (8.5-10.1)
[2021-09-22 08:37] LABS: ALBUMIN 2.6 g/dl (3.4-5.0); BLOOD UREA NITROGEN 40.2 mg/dL (7-18)
[2021-09-22 08:40] LABS: CREATININE 1.3 mg/dL (0.55-1.3)
[2021-09-22 08:41] LABS: BILIRUBIN,TOTAL 0.6 mg/dL (0.2-1); TOT PROT 5.3 g/dl (6.4-8.2)
[2021-09-22] MEDS ORDERED: morphine CARPU-JECT 2 MG/1 ML DISP.SYRIN IVPUSH ONE (09:43)
[2021-09-22] MEDS: RANOLAZINE E.R. 500 MG TABLET (FP) PO SCH ×2 (09:49→21:28)
[2021-09-22] MEDS: metoPROLOL SUCCINATE 25 MG TAB.SR.24H (FP) PO SCH (09:49)
[2021-09-22] MEDS: INSULIN (LEVEMIR) 100 UNITS/ML UNITS SQ SCH ×2 (12:21→21:29)
[2021-09-22] MEDS ORDERED: LIDOCAINE HCL 1%, 10 MG/ML (20ML VIAL) ONE (13:07)
[2021-09-22] MEDS ORDERED: HEPARIN NA (PORCINE) 5,000 UNITS/ML 1ML VIAL ONE (13:08)
[2021-09-22] MEDS ORDERED: POVIDONE-IODINE OINTMENT 10% - 28.4 GM TUBE ONE (13:09)
[2021-09-22 19:22] LABS: BASO % 2.5 % (0-2.0); EOS % 2.5 % (0-4.5); HEMATOCRIT 24.7 % (32.4-45.2); LYMPH % 24.2 % (8-40); MCH 29.9 pg (25.7-33.7); MCHC 32.4 g/dl (32.0-36.0); MEAN CELL VOLUME 92.3 fl (80-96); MEAN PLT VOLUME 11.3 fl (7.5-11.1); NEUT % 64.8 % (42.8-82.8); PLATELET COUNT 174 10^3/uL (134-434); RBC 2.68 M/mm3 (3.60-5.2); RDW 16.4 % (11.6-15.6); WHITE BLOOD COUNT 8.3 K/mm3 (4.0-10.0)
[2021-09-22] MEDS: ATORVASTATIN CA 80 MG TABLET (FP) PO SCH (21:28)
[2021-09-23] MEDS: HEPARIN NA (PORCINE) 5,000 UNITS/ML 1ML VIAL SQ SCH ×3 (05:19→21:26)
[2021-09-23] MEDS: INSULIN SLIDING SCALE (NOVOLOG) 1 VIAL SQ SCH ×4 (06:14→21:25)
[2021-09-23] MEDS: INSULIN (LEVEMIR) 100 UNITS/ML UNITS SQ SCH ×2 (10:36→21:25)
[2021-09-23] MEDS: RANOLAZINE E.R. 500 MG TABLET (FP) PO SCH ×2 (10:36→21:26)
[2021-09-23] MEDS: metoPROLOL SUCCINATE 25 MG TAB.SR.24H (FP) PO SCH (10:36)
[2021-09-23 19:26] LABS: EOS % 4.1 % (0-4.5); HEMATOCRIT 24.6 % (32.4-45.2); HEMOGLOBIN 7.9 GM/dL (10.7-15.3); LYMPH % 24.3 % (8-40); MCH 29.4 pg (25.7-33.7); MCHC 32.2 g/dl (32.0-36.0); MEAN CELL VOLUME 91.3 fl (80-96); MEAN PLT VOLUME 9.7 fl (7.5-11.1); MONO % 6.7 % (3.8-10.2); NEUT % 63.9 % (42.8-82.8); PLATELET COUNT 172 10^3/uL (134-434); RBC 2.69 M/mm3 (3.60-5.2); RDW 15.8 % (11.6-15.6); WHITE BLOOD COUNT 6.6 K/mm3 (4.0-10.0)
[2021-09-23 19:43] LABS: CALCIUM 8.4 mg/dL (8.5-10.1)
[2021-09-23 19:44] LABS: ALBUMIN 2.8 g/dl (3.4-5.0); BLOOD UREA NITROGEN 49.4 mg/dL (7-18)
[2021-09-23 19:47] LABS: CREATININE 1.6 mg/dL (0.55-1.3)
[2021-09-23 19:49] LABS: BILIRUBIN,TOTAL 0.4 mg/dL (0.2-1); TOT PROT 6.1 g/dl (6.4-8.2)
[2021-09-23] MEDS: ATORVASTATIN CA 80 MG TABLET (FP) PO SCH (21:25)
[2021-09-24] MEDS: INSULIN SLIDING SCALE (NOVOLOG) 1 VIAL SQ SCH ×4 (05:59→21:24)
[2021-09-24] MEDS: HEPARIN NA (PORCINE) 5,000 UNITS/ML 1ML VIAL SQ SCH ×3 (05:59→21:21)
[2021-09-24 07:11] LABS: BASO % 0.9 % (0-2.0); EOS % 2.8 % (0-4.5); HEMATOCRIT 22.1 % (32.4-45.2); HEMOGLOBIN 7.3 GM/dL (10.7-15.3); LYMPH % 17.1 % (8-40); MCH 30.4 pg (25.7-33.7); MEAN PLT VOLUME 10.7 fl (7.5-11.1); MONO % 5.6 % (3.8-10.2); NEUT % 73.6 % (42.8-82.8); PLATELET COUNT 168 10^3/uL (134-434); RDW 15.8 % (11.6-15.6); WHITE BLOOD COUNT 8.7 K/mm3 (4.0-10.0)
[2021-09-24 08:23] LABS: ALBUMIN 2.9 g/dl (3.4-5.0); BLOOD UREA NITROGEN 49.8 mg/dL (7-18); CALCIUM 8.5 mg/dL (8.5-10.1)
[2021-09-24 08:26] LABS: CREATININE 1.7 mg/dL (0.55-1.3)
[2021-09-24 08:28] LABS: BILIRUBIN,TOTAL 0.5 mg/dL (0.2-1); TOT PROT 6.1 g/dl (6.4-8.2)
[2021-09-24] MEDS: RANOLAZINE E.R. 500 MG TABLET (FP) PO SCH ×3 (09:08→21:21)
[2021-09-24] MEDS: metoPROLOL SUCCINATE 25 MG TAB.SR.24H (FP) PO SCH ×2 (09:08→10:57)
[2021-09-24] MEDS: INSULIN (LEVEMIR) 100 UNITS/ML UNITS SQ SCH ×2 (09:10→21:25)
[2021-09-24] MEDS ORDERED: FLU VACC QS2021-22(6MOS UP)/PF 60 MCG/0.5 ML SYRINGE IM ONE (14:00)
[2021-09-24] MEDS: ATORVASTATIN CA 80 MG TABLET (FP) PO SCH (21:21)
[2021-09-25 01:20] VITALS: TEMP 98.6
[2021-09-25] MEDS: HEPARIN NA (PORCINE) 5,000 UNITS/ML 1ML VIAL SQ SCH (05:18)
[2021-09-25] MEDS: INSULIN SLIDING SCALE (NOVOLOG) 1 VIAL SQ SCH ×2 (06:18→13:13)
[2021-09-25] MEDS ORDERED: SACUBITRIL/VALSARTAN 24 MG-26 MG TABLET PO SCH (10:00)
[2021-09-25] MEDS ORDERED: APIXABAN 2.5 MG TABLET PO SCH (10:00)
[2021-09-25] MEDS: metoPROLOL SUCCINATE 25 MG TAB.SR.24H (FP) PO SCH (10:26)
[2021-09-25] MEDS: RANOLAZINE E.R. 500 MG TABLET (FP) PO SCH (10:26)
[2021-09-25] MEDS: INSULIN (LEVEMIR) 100 UNITS/ML UNITS SQ SCH (10:30)
[2021-09-25 11:36] LABS: BASO % 0.8 % (0-2.0); EOS % 3.4 % (0-4.5); HEMATOCRIT 25.6 % (32.4-45.2); HEMOGLOBIN 8.7 GM/dL (10.7-15.3); LYMPH % 15.3 % (8-40); MCHC 33.8 g/dl (32.0-36.0); MEAN CELL VOLUME 91.5 fl (80-96); MEAN PLT VOLUME 10.3 fl (7.5-11.1); MONO % 5.6 % (3.8-10.2); NEUT % 74.9 % (42.8-82.8); PLATELET COUNT 171 10^3/uL (134-434); RDW 14.7 % (11.6-15.6); WHITE BLOOD COUNT 8.4 K/mm3 (4.0-10.0)
[2021-09-25 11:59] LABS: ALBUMIN 2.6 g/dl (3.4-5.0); BLOOD UREA NITROGEN 46.1 mg/dL (7-18); CALCIUM 8.4 mg/dL (8.5-10.1)
[2021-09-25 12:03] LABS: BILIRUBIN,TOTAL 0.6 mg/dL (0.2-1); CREATININE 1.5 mg/dL (0.55-1.3); TOT PROT 5.8 g/dl (6.4-8.2)
[2021-09-25 12:48] VITALS: BP 138/62; PULSE 82
[2021-09-25] MEDS ORDERED: ACETAMINOPHEN 1000 MG/100 ML BAG IVPB ONE (13:45)
== END 2021-09-25 14:10 | disposition home or self-care (01) | DRG 920 ==
LOC: JER 19:12 → JASUSAT 19:45 → JERBED 19:46 → J2W 09-21 05:43
PROVIDERS: ADMIT Internal Medicine
PROC: 30233N1 Transfusion of Nonautologous Red Blood Cells into Peripheral Vein, Percutaneous Approach (ICD-10-PCS; principal; 2021-09-21)
DX: I97.638 Postprocedural hematoma of a circulatory system organ or structure following other circulatory system procedure (principal); I24.8 Other forms of acute ischemic heart disease; I13.0 Hypertensive heart and chronic kidney disease with heart failure and stage 1 through stage 4 chronic kidney disease, or unspecified chronic kidney disease; I50.42 Chronic combined systolic (congestive) and diastolic (congestive) heart failure; N17.9 Acute kidney failure, unspecified; E11.51 Type 2 diabetes mellitus with diabetic peripheral angiopathy without gangrene; I48.91 Unspecified atrial fibrillation; E03.9 Hypothyroidism, unspecified; E78.5 Hyperlipidemia, unspecified; N39.498 Other specified urinary incontinence; J44.9 Chronic obstructive pulmonary disease, unspecified; D64.9 Anemia, unspecified; G20 Parkinson's disease; I25.10 Atherosclerotic heart disease of native coronary artery without angina pectoris; D72.829 Elevated white blood cell count, unspecified; E11.22 Type 2 diabetes mellitus with diabetic chronic kidney disease; S70.11XA Contusion of right thigh, initial encounter; E87.5 Hyperkalemia; F32.A Depression, unspecified; N18.2 Chronic kidney disease, stage 2 (mild); Z89.612 Acquired absence of left leg above knee; Z86.73 Personal history of transient ischemic attack (TIA), and cerebral infarction without residual deficits; Z95.1 Presence of aortocoronary bypass graft; Z93.0 Tracheostomy status; Z95.5 Presence of coronary angioplasty implant and graft; Y83.8 Other surgical procedures as the cause of abnormal reaction of the patient, or of later complication, without mention of misadventure at the time of the procedure
CPT/HCPCS: 36415; 36430; 71045-TC-FY; 73706-TC-RT; 80053; 80061; 82962; 83036; 83605; 83735; 84100; 84439; 84443; 84484; 85025; 85610; 85730; 86850; 86900; 86901; 86922; 90686; 93005; 93010; 93306-TC; 93971-TC; 99291; C9803-CS; G0008; J1644; P9058; Q9967; U0003; U0005

== ENCOUNTER 2021-12-16 11:39 | Inpatient (IN) | payer OTHER ==
[2021-12-16 12:06] VITALS: BMI 24.5
[2021-12-16 13:14] LABS: BASO % 0.5 % (0-2.0); EOS % 0.6 % (0-4.5); HEMATOCRIT 20.2 % (32.4-45.2); HEMOGLOBIN 6.3 GM/dL (10.7-15.3); LYMPH % 19.1 % (8-40); MCH 30.7 pg (25.7-33.7); MCHC 31.3 g/dl (32.0-36.0); MEAN CELL VOLUME 97.9 fl (80-96); MEAN PLT VOLUME 9.2 fl (7.5-11.1); MONO % 7.1 % (3.8-10.2); NEUT % 72.7 % (42.8-82.8); PLATELET COUNT 207 10^3/uL (134-434); RBC 2.07 M/mm3 (3.60-5.2); RDW 17.2 % (11.6-15.6); WHITE BLOOD COUNT 10.5 K/mm3 (4.0-10.0)
[2021-12-16 13:18] VITALS: TEMP 97.2
[2021-12-16 13:20] LABS: INR 1.34 (0.83-1.09); PROTHROMBIN TIME (PATIENT) 15.5 SEC (9.7-13.0)
[2021-12-16 13:23] LABS: ACTIVATED PTT 27.2 SECONDS (25.2-36.5)
[2021-12-16 13:40] LABS: CHLORIDE 101 mmol/L (98-107); SODIUM 134 mmol/L (136-145)
[2021-12-16] MEDS ORDERED: PIPERACILLIN/TAZOB 4.5 GM 4.5 GM in DEXTROSE 5%-WATER 100 ML IVPB ONE (13:41)
[2021-12-16 13:42] LABS: CALCIUM 8.5 mg/dL (8.5-10.1)
[2021-12-16 13:43] LABS: ALBUMIN 3.1 g/dl (3.4-5.0); ANION GAP 15 MMOL/L (8-16); CO2 18 mmol/L (21-32)
[2021-12-16 13:44] LABS: BLOOD UREA NITROGEN 55.6 mg/dL (7-18); GLUCOSE,RANDOM 222 mg/dL (74-106)
[2021-12-16 13:46] LABS: CREATININE 2.5 mg/dL (0.55-1.3); SGOT/AST 39 U/L (15-37); SGPT/ALT 11 U/L (13-61)
[2021-12-16 13:47] LABS: CHOLESTEROL 98 mg/dL (50-200); TOT PROT 6.6 g/dl (6.4-8.2)
[2021-12-16 13:49] LABS: BILIRUBIN,TOTAL 0.6 mg/dL (0.2-1); TRIGLYCERIDES 154 mg/dL (0-150)
[2021-12-16 13:50] LABS: ALK PHOS 88 U/L (45-117); HDL CHOLESTEROL 50 mg/dL (40-60); LDL CHOLESTEROL (ONLY SJRH) 30 mg/dL (5-100)
[2021-12-16] MEDS ORDERED: CALCIUM GLUC IN NACL, ISO-OSM 1 GM/50 ML BAG IVPB ONE ×2 (13:57→14:05)
[2021-12-16] MEDS ORDERED: PIPERACILLIN/TAZOB 4.5 GM 4.5 GM/100 ML BAG IVPB ONE (14:05)
[2021-12-16 14:22] LABS: URINE APPEARANCE TURBID; URINE BILIRUBIN NEGATIVE (NEGATIVE); URINE COLOR YELLOW; URINE GLUCOSE (UA) NEGATIVE (NEGATIVE); URINE KETONE TRACE (NEGATIVE); URINE NITRITE NEGATIVE (NEGATIVE); URINE PROTEIN 3+ (NEGATIVE); URINE UROBILINOGEN 0.2 mg/dL (0.2-1.0)
[2021-12-16 14:23] LABS: EPI CELLS 50 /uL (0-25.1); HYALINE CASTS 513 /uL (0-3.1); URINE BACTERIA 34786 /uL (0-1359); URINE LEUK ESTERASE 3+ (NEGATIVE); URINE RBC 381 /uL (0-23.9); URINE WBC 28386 /uL (0-25.8)
[2021-12-16 14:33] LABS: YEAST NEGATIVE (NEGATIVE)
[2021-12-16 16:05] VITALS: BP 118/54
[2021-12-16 16:15] VITALS: PULSE 54
[2021-12-16 16:30] LABS: BLOOD UREA NITROGEN 53.5 mg/dL (7-18); CALCIUM 8.8 mg/dL (8.5-10.1)
[2021-12-16 16:33] LABS: CREATININE 2.4 mg/dL (0.55-1.3)
[2021-12-16] MEDS ORDERED: RACEPINEPHRINE IH SOL 2.25% 11.25 MG/0.5 ML VIAL NEB ONE ×2 (16:43→16:45)
[2021-12-16] MEDS ORDERED: SODIUM BICARBONATE 8.4% 50 MEQ/50 ML DISP.SYRIN IVPUSH ONE (16:43)
[2021-12-16] MEDS ORDERED: FUROSEMIDE 40 MG/4 ML INJECTABLE VIAL IVPUSH ONE (16:43)
[2021-12-16] MEDS ORDERED: VASOPRESSIN 20 UNITS/ML VIAL IV ONE (16:45)
[2021-12-16] MEDS ORDERED: NOREPINEPHRINE D5W PREMIX 16,000 MCG/500 ML BAG IVPB SCH ×3 (16:45→18:45)
[2021-12-16] MEDS ORDERED: RAPID SEQUENCE INTUBATION KIT NR ONE (16:54)
[2021-12-16] MEDS ORDERED: VASOPRESSIN 40 UNITS/100 ML BAG IV SCH (17:00)
[2021-12-16] MEDS ORDERED: EPINEPHrine 1:10,000 (P-F SYR) 1 MG/10 ML DISP.SYRIN ONE (17:13)
[2021-12-16 17:14] LABS: LACTIC ACID 6.6 mmol/L (0.4-2.0)
[2021-12-16] MEDS ORDERED: PROPOFOL 200 MG/20 ML VIAL IVPUSH ONE (17:39)
[2021-12-16 17:43] VITALS: RESP 17
[2021-12-16] MEDS ORDERED: FENTANYL IVPB 500 MCG/100 ML BAG IVPB SCH (17:45)
[2021-12-16] MEDS ORDERED: FENTANYL NS IVPB 500 MCG/100 ML BAG IVPB SCH (17:45)
[2021-12-16] MEDS ORDERED: PROPOFOL 1,000,000 MCG/100 ML VIAL IVPB SCH (18:00)
[2021-12-16] MEDS ORDERED: NOREPINEPHRINE BITARTRATE 4 MG/4 ML ML IV ONE (18:47)
== END 2021-12-16 21:35 | disposition expired | DRG 871 ==
LOC: JER 11:39 → JERBED 14:49 → JICU 16:28
PROVIDERS: ADMIT Internal Medicine Pulmonary Disease; ATTEND Internal Medicine Pulmonary Disease
PROC: 0BH17EZ Insertion of Endotracheal Airway into Trachea, Via Natural or Artificial Opening (ICD-10-PCS; principal; 2021-12-16)
PROC: 5A1935Z Respiratory Ventilation, Less than 24 Consecutive Hours (ICD-10-PCS; 2021-12-16)
PROC: 05HM33Z Insertion of Infusion Device into Right Internal Jugular Vein, Percutaneous Approach (ICD-10-PCS; 2021-12-16)
PROC: B543ZZA Ultrasonography of Right Jugular Veins, Guidance (ICD-10-PCS; 2021-12-16)
PROC: 5A12012 Performance of Cardiac Output, Single, Manual (ICD-10-PCS; 2021-12-16)
DX: A41.89 Other specified sepsis (principal); G93.41 Metabolic encephalopathy; R65.21 Severe sepsis with septic shock; N17.9 Acute kidney failure, unspecified; I69.354 Hemiplegia and hemiparesis following cerebral infarction affecting left non-dominant side; N39.0 Urinary tract infection, site not specified; I50.42 Chronic combined systolic (congestive) and diastolic (congestive) heart failure; I11.0 Hypertensive heart disease with heart failure; E78.00 Pure hypercholesterolemia, unspecified; I25.10 Atherosclerotic heart disease of native coronary artery without angina pectoris; I48.91 Unspecified atrial fibrillation; E87.5 Hyperkalemia; D64.9 Anemia, unspecified; I73.9 Peripheral vascular disease, unspecified; G20 Parkinson's disease; I46.9 Cardiac arrest, cause unspecified; Z95.5 Presence of coronary angioplasty implant and graft; Z95.1 Presence of aortocoronary bypass graft; Z89.512 Acquired absence of left leg below knee
CPT/HCPCS: 0241U-QW; 36415; 70450-TC; 71045-TC-FY; 80048; 80053; 80061; 81003; 82550; 82962; 83036; 83605; 84484; 85025; 85610; 85730; 86922; 93005; 93010; 94002; 94640; 99291